=== PATIENT | female | born 1990 | race Caucasian/White ===

== ENCOUNTER 2020-12-03 08:36 | Emergency (ER) | payer BC, SELFPAY ==
[2020-12-03 08:50] VITALS: BP 123/65; PULSE 89; RESP 16; TEMP 36.3; O2SAT 100
--- NOTE | 2020-12-03 08:57 | ED.GENADULT ---
HPI - General Adult General Chief complaint: Urogenital-Female Stated complaint: Poss Uti Time Seen by Provider: 12/03/20 08:53 Source: patient and RN notes reviewed Mode of arrival: ambulatory Limitations: no limitations History of Present Illness HPI narrative: 30-year-old female presents with urinary complaints for the past 7 days. Luciana reports increasing symptoms daily. Dysuria consist of low back pain, hematuria, burning, frequency, and urgency.? D-Mannose natural supplement without relief.? Denies fever or chills. No significant pelvic pain. No vaginal discharge.? No concerns for STDs. Exacerbating factors urinating.? Denies vaginal bleeding. LMP 11/08/2020.? Denies nausea, vomiting, and abdominal pain.? Tolerating liquids well. Remains active. The patient reports she have not been diagnosed with COVID-19. The patient reports she is not waiting for the results of a COVID-19 lab test. The patient reports she do not have sweats, weakness, or fatigue. The patient reports she do not have a new or worsening cough or shortness of breath. Denies chest pain. The patient reports she do not have any rhinorrhea, congestion, sore throat, loss of taste or smell, and diarrhea. Denies recent traveling. Denies concerns for COVID-19 or exposures been home with limited outdoor exposure except for essential household needs and return home. At this time, patient is not suspected of having COVID-19. Some parts of this dictation were generated by voice recognition software and may contain typographical and/or grammatical inaccuracies. Related Data Home Medications Medication Instructions Recorded Confirmed No Home Medications 12/03/20 12/03/20 Allergies Allergy/AdvReac Type Severity Reaction Status Date / Time No Known Allergies Allergy Verified 12/03/20 08:45 Review of Systems Review of Systems: Narrative: CONSTITUTIONAL: Denies fever, chills, sweats. EYES: Denies visual changes, redness, discharge. ENT: Denies rhinorrhea, congestion, sore throat, otalgia. CARDIOVASCULAR: Denies chest pain, palpitations, edema. RESPIRATORY: Denies dyspnea, wheezing, cough. GASTROINTESTINAL: Denies abdominal pain, nausea, vomiting, diarrhea. GENITOURINARY: Complains of hematuria, dysuria (burning, frequency, and urgency). Denies abnormal discharge. SKIN: Denies rash or itching. MUSCULOSKELETAL: Complains of lower back pain. Denies joint pain or myalgia. NEUROLOGIC: Denies numbness or focal weakness. PSYCHIATRIC: Denies anxiety or depression. All systems reviewed & are unremarkable except as noted in HPI and below. PENDING SALE TO [facility] Past Medical History Medical History (Updated 12/04/20 @ 00:00 by Michelet Oliver) delivery delivered X1 Vaginal delivery X1 Surgical History Surgical History (Updated 12/03/20 @ 09:16 by WALT Alvarado) H/O section Family History Family History (Updated 12/03/20 @ 09:17 by WALT Alvarado) Father Hematuria Mother Alive and well Social History Social History (Updated 12/03/20 @ 09:18 by WALT Alvarado) Smoking status: Never smoker Alcohol intake: current Substance use: never Living arrangements: with family Occupation/Education: unemployed Gender identity (if verbalized by the patient): Female Sexual Orientation (if Verbalized by the Patient): Straight or Heterosexual Comments At time of signature, agree with nurse past medical, surgical, social, and family history.? There is no relevant family history pertinent to the presenting complaint. Exam Narrative: Exam Narrative: GENERAL: This is a well-nourished, well-developed patient, in no apparent distress.? Talks in full sentences and ambulates with steady gait without dyspnea. HEAD: Normocephalic, atraumatic. EYES: PERRL. Sclera clear/white. Vision is grossly intact. CARDIOVASCULAR: Regular rate and rhythm without murmurs, gallops, or rubs. RESPIRATORY: Clear to auscultation. Mariam
== END 2020-12-03 09:12 | disposition home or self-care (01) ==
PROVIDERS: Emergency Provider Nurse Practitioner Family
DX: R30.0 Dysuria (principal)
CPT/HCPCS: 81003; 87077; 87086; 87088; 87186; 99213; G0463

== ENCOUNTER 2021-02-26 18:58 | Emergency (ER) | payer BC, SELFPAY ==
[2021-02-26 19:03] VITALS: BP 154/94; PULSE 85; RESP 20; TEMP 36.9; O2SAT 100
--- NOTE | 2021-02-26 19:23 | ED.FEMALEGU ---
HPI - Female Genitourinary General Chief complaint: Urogenital-Female Stated complaint: Possible UTI Time Seen by Provider: 02/26/21 19:23 Source: patient, RN notes reviewed and old records reviewed Mode of arrival: ambulatory Limitations: no limitations History of Present Illness HPI Narrative: 30 year old female who presents to [facility] care with complaints of urine frequency, urgency ,hematuria, right flank pain radiates to pelvis with supra pubic pressure since 1100 today. Patient states that she has taken Ibuprofen and Tylenol for her discomfort with minimal decrease in her discomfort. Patient states history of frequent urinary tract infections.Patient denies any vaginal discharge or any perineal itching, denies any nausea or vomiting or any known fevers. MD elicited complaint: UTI and flank pain (right flank) Pertinent past history: recurrent UTIs Location of symptoms: suprapubic and flank Severity: moderate Female Urogenital Radiation: Suprapubic and R Flank Severity scale (1-10): 4 Associated symptoms: abdominal pain (suprapubic) and back pain (right flank) Related Data Home Medications Medication Instructions Recorded Confirmed No Home Medications 12/03/20 02/26/21 Allergies Allergy/AdvReac Type Severity Reaction Status Date / Time No Known Allergies Allergy Verified 02/26/21 19:22 Review of Systems Review of Systems: Narrative: CONSTITUTIONAL: Denies fever, chills, or sweats. EYES: Denies visual changes, redness, or discharge. ENT: Denies rhinorrhea, congestion, sore throat, or otalgia. CARDIOVASCULAR: Denies chest pain, palpitations, or edema. RESPIRATORY: Denies cough or dyspnea. GASTROINTESTINAL: Positive for suprapubic abdominal pain,no nausea, vomiting, or diarrhea. GENITOURINARY:Positive for dysuria or hematuria. SKIN: Denies rash or itching. MUSCULOSKELETAL: Positive for right flank pain in her back,no joint pain, or myalgia. NEUROLOGIC: Denies headache, numbness, or weakness. PSYCHIATRIC: Denies anxiety or depression. All systems reviewed & are unremarkable except as noted in HPI and below PMFSH Past Medical History Medical History delivery delivered X1 Vaginal delivery X1 Surgical History Surgical History H/O section Family History Family History Father Hematuria Mother Alive and well Social History Social History Smoking status: Never smoker Alcohol intake: current Substance use: never Gender identity (if verbalized by the patient): Female Comments At time of signature, agree with nursing past medical, surgical, social and family history. There is no relevant family history pertinent to the presenting complaint Exam Narrative: Exam Narrative: GENERAL: Well-appearing, well-nourished, and in no acute distress. HEAD: Normocephalic, atraumatic. EYES: PERRLA and EOMI. ENT: Nares clear, no rhinorrhea or epistaxis. Mucous membranes moist.TM's normal with good light reflex, throat pin with no lesions, exudates or tonsil enlargement. NECK: Supple.no lymphadenopathy CHEST: Clear to auscultation. No respiratory distress.SAO2 100% on room air HEART: Regular rate and rhythm. No murmur heard. Normal peripheral pulses. ABDOMEN: Soft,tender suprapubic area, nondistended, normal active bowel sounds.Negative McBurney point tenderness EXTREMITIES: Normal range of motion. No edema. Right flank pain upon examination. SKIN: Warm, dry, no rash. NEURO: No focal deficits. Alert and oriented x3. Course Vital Signs Vital signs: Vital Signs Temperature 36.9 C 02/26/21 19:03 Pulse Rate 85 02/26/21 19:03 Respiratory Rate 20 02/26/21 19:03 Blood Pressure 154/94 H 02/26/21 19:03 Pulse Oximetry 100 02/26/21 19:03 Temperature 36.9 C 02/26
== END 2021-02-26 20:04 | disposition home or self-care (01) ==
PROVIDERS: Emergency Provider Registered Nurse
DX: N39.0 Urinary tract infection, site not specified (principal); R31.9 Hematuria, unspecified
CPT/HCPCS: 81003; 87086; 99213; G0463

== ENCOUNTER 2022-07-09 05:00 | Inpatient (IN) | payer OTHER, SELFPAY ==
[2022-07-09] VITALS (98 sets, daily range): BP systolic 87–166; BP diastolic 57–100; PULSE 83–162; RESP 16; TEMP 36.3–37.1; O2SAT 87–100; BMI 35.9
--- NOTE | 2022-07-09 05:21 | LDADM ---
This patient, Luciana Arce, was admitted to Labor/Delivery/Recovery 102 on 07/09/22 at 05:00. Plans for labor, pain management and were discussed with patient. Patient/family oriented to hospital policies and general routines including ID bracelet, bed and alarms, visiting hours, pain management, procedures, bathroom and other care routines, personal items, smoking policy, room service/diet and guest tray routines, security routines, and visiting hours. Patient/Family are encouraged to report perceived risks to care and to ask questions if they do not understand what they are told or what they should do. See OBIX for further documentation.
[2022-07-09 05:30] LABS: Basophils Percent Auto 0.2 % (0.2-1.2); Eosinophils Absolute Auto 0.1 K/mm3 (0-0.3); Eosinophils Percent Auto 0.8 % (0-4.4); Hematocrit 33.2 % (37.0-47.0); Hemoglobin 10.5 g/dL (12.0-15.0); Immature Granulocyte Absolute 0.02 K/mm3 (0.00-0.031); Immature Granulocyte Percent A 0.3 % (0-0.5); Lymphocytes Absolute Auto 1.41 K/mm3 (0.9-3.2); Lymphocytes Percent Auto 23.1 % (18.3-44.2); Mean Corpuscular HGB Conc 31.6 g/dl (32-36); Mean Corpuscular Hemoglobin 25.3 pg (26-34); Mean Platelet Volume 11.7 fl (7.4-10.4); Monocytes Absolute Auto 0.5 K/mm3 (0.1-0.6); Monocytes Percent Auto 8.9 % (2.6-8.5); Neutrophils Absolute Auto 4.1 K/mm3 (1.3-6.7); Neutrophils Percent Auto 66.7 % (45.5-73.1); Platelet Count Result 309 k/mm3 (150-375); Red Blood Count 4.15 M/mm3 (4.2-5.4); Red Cell Distribution Width 14.5 % (11.5-14.5); White Blood Count 6.1 K/mm3 (4.5-10.0)
--- NOTE | 2022-07-09 06:09 | WPDANESEPP ---
Anes - Eval Pre Procedure Procedure: labor epidural Date/Time: 07/09/22 06:09 Pre Op Diagnosis: IOL Patient Data Age: 32 Gender: F Height: 1.7 m Weight: 104 kg Last Vital Signs Pulse 98 07/09/22 06:00 BP 124/85 07/09/22 06:00 O2 Del Method Room Air 07/09/22 05:20 Allergies Allergy/AdvReac Type Severity Reaction Status Date / Time No Known Allergies Allergy Verified 06/24/22 12:30 Home Medications Medication Instructions Recorded Confirmed Type No Home Medications 12/03/20 02/26/21 History cephalexin 500 mg tablet 500 mg PO Q8H #30 tabs 02/26/21 Rx Laboratory Tests 07/09/22 07/09/22 07/09/22 05:10 05:10 05:10 WBC 6.1 K/mm3 K/mm3 (4.5-10.0) RBC 4.15 M/mm3 L M/mm3 (4.2-5.4) Hgb 10.5 g/dL L g/dL (12.0-15.0) Hct 33.2 % L % (37.0-47.0) MCV 80.0 fl fl (80-100) MCH 25.3 pg L pg (26-34) MCHC 31.6 g/dl L g/dl (32-36) RDW 14.5 % % (11.5-14.5) Plt Count 309 k/mm3 k/mm3 (150-375) MPV 11.7 fl H fl (7.4-10.4) Immature Gran % (Auto) 0.3 % % (0-0.5) Neut % (Auto) 66.7 % % (45.5-73.1) Lymph % (Auto) 23.1 % % (18.3-44.2) [place] % (Auto) 8.9 % H % (2.6-8.5) Eos % (Auto) 0.8 % % (0-4.4) Baso % (Auto) 0.2 % % (0.2-1.2) Lymph # (Auto) 1.41 K/mm3 K/mm3 (0.9-3.2) [place] # (Auto) 0.5 K/mm3 K/mm3 (0.1-0.6) Eos # (Auto) 0.1 K/mm3 K/mm3 (0-0.3) Baso # (Auto) 0.0 K/mm3 K/mm3 (0.0-0.1) Abs Immat Gran (auto) 0.02 K/mm3 K/mm3 (0.00-0.031) Absolute Neuts (auto) 4.1 K/mm3 K/mm3 (1.3-6.7) Absolute Nucleated RBC 0.0 K/mm3 K/mm3 (0.0-0.012) Nucleated RBC % 0.0 % % (0.0-0.2) RPR Pending Crossmatch See Detail Patient hx anesthesia problems: none Family hx anesthesia problems: none Results Review: All pre-operative results and documents have been reviewed as part of the pre-operative evaluation. [facility] Past Medical History Medical History delivery delivered X1 Vaginal delivery X1 Surgical History Surgical History H/O section Family History Family History Father Hematuria Mother Alive and well Grandparent Cerebrovascular accident Social History Social History Smoking status: Never smoker Alcohol intake: current Substance use: never Lack of Transportation: No Lack of Food: Never True Current Housing: I Have Housing Concerned About Future Housing: No Difficulty Paying Gas/Electric Bills: No Difficulty Paying for Meds: No Currently Unemployed: No Education: Bachelor's Degree Difficulty w/ Childcare or Family Care: No Gender identity (if verbalized by the patient): Female Sexual Orientation (if Verbalized by the Patient): Straight or Heterosexual Spiritual care concerns: No Exam Day of Procedure 07/09/22 06:09 Patient weight: obese Heart: regular rate and rhythm Lungs: normal air movement Airway: Mallampati scale Neurological: alert and oriented
--- NOTE | 2022-07-09 06:58 | WPDOBADMIT ---
Obstetrics - Admit Note Admission Note: record reviewed. No pertinent additions to the history and/or any subsequent changes in the physical findings that are not consistent with the expected course of the were found. PT admitted for IOL, SVE 2-3/60/-2 AROM small fluid, bloody show, HX vaginal X1, section for previa and plans TOLAC today. Consent signed and risks of TOLAC have been reviewed with pt by MD during her care Additions to the history and/or subsequent changes in the physical findings follow. None.
[2022-07-09] MEDS: LACTATED RINGERS 1,000 ML 125 ML IV CONT ×2 (10:45→13:52)
[2022-07-09] MEDS: OXYTOCIN 30 UNITS/NS 500 ML 30 UNITS/500 ML BAG IV CONT (10:45)
[2022-07-09 14:47] LABS: Rapid Plasma Reagin Non-Reactive (NonReactive)
--- NOTE | 2022-07-09 18:39 | P.PCNOB_ITS ---
OB - Delivery Note Procedure Delivery date: 07/09/22 Procedure: TOLAC, Events: Other (TOLAC) Induction method: Per Pitocin Protocol Delivery augmentation: Rupture of Membranes Delivery monitor: External FHT and Internal Uterine Route of delivery: Laceration Description: Perineal - 2nd Degree (superficial skin down to rectum, no rectal capsule involvement) Delivery repair: vicryl Specimen: No Quantitative Blood Loss (ml): 120 Anesthesia type: Epidural Disposition: Floor Narrative: mom and baby stable and doing skin to skin [place] Baby Date of : 07/09/22 Time of : 18:19 Weeks of gestation at delivery: 39 gender: Female Weight (pounds): 7 Weight (ounces): 13 presentation: vertex position: Right Occiput Anterior (compound presentation, posterior arm) Placenta delivery description: Spontaneous Cord Vessel Description: 3 Vessels, Clamped/Cut and Delayed Cord Clamping score one minute: 7 score five minutes: 9
[2022-07-09] MEDS: WITCH HAZEL 40 PADS 1 PAD TOPICAL (19:56)
[2022-07-09] MEDS: KETOROLAC 30 MG/ML VIAL (*BKC) IV PUSH (19:56)
[2022-07-09] MEDS: BENZOCAINE 20% AER SPR (*SP) 56 GM CAN 1 SPRAY TOPICAL (19:56)
[2022-07-10] MEDS: ACETAMINOPHEN 325 MG TABLET 650 MG PO ×3 (00:15→15:46)
[2022-07-10] MEDS: KETOROLAC 30 MG/ML VIAL (*BKC) IV PUSH (03:45)
[2022-07-10 05:57] LABS: Hemoglobin 8.8 g/dL (12.0-15.0)
--- NOTE | 2022-07-10 07:15 | PM.OBPNVD ---
OB - PN: Subj Subjective Date/time seen: 07/10/22 07:15 S/p day 1 OB - PN: Obj Data Labs CBC & Chem 7: 07/10/22 04:07 Labs: Laboratory Results - last 24 hr 07/09/22 07/10/22 05:10 04:07 Hgb 8.8 L Hct 28.0 L RPR Non-reactive OB - PN A/P Plan day: 1 Plan: routine care and discharge home Time Spent With Patient Time: Total time spent is greater than 50% in coordination of care (as documented) at patient's floor/unit and/or counseling patient: Review of Systems Review of Systems: All systems reviewed & are unremarkable except as noted in HPI and below Exam Const: General: cooperative, healthy appearing and comfortable
--- NOTE | 2022-07-10 07:19 | PM.OBDSVD ---
DS: Admitting Diagnosis Discharge Date 07/10/2022 Admitting Diagnosis IOL, TOLAC OB - DS: Summary OB Procedures : None OB Procedures Intrapartum: Spontaneous Vag Delivery OB Procedures: : None Time Spent with Patient Time attestation: Total time spent providing and/or coordinating discharge services: DS: Data Data Completed and Pending Labs on day of discharge: Labs from last 24 hours 07/10/22 07/09/22 04:07 05:10 Hgb 8.8 L Hct 28.0 L RPR Non-reactive Discharge Plan Discharge Attending physician on discharge: Kaylah Huff Discharging Clinician: Huong Denise Patient Disposition: Home, Self-Care Activity: pelvic rest Diet: regular Patient Instructions: Antibiotic Form Stand Alone Forms: General Discharge Information Follow-up/Referrals: Huong Denise CNM [Primary Care Provider] - 4 Weeks Discharge Medications: Discontinued cephalexin 500 mg tablet 500 mg PO Q8H Qty: 30 0RF No Action No Home Medications Date of admission: 07/09/22 05:00 Primary Care Provider: Huong Denise Admitting Provider: Kaylah Huff Attending physician on admission: Kaylah Huff Condition: Stable
[2022-07-10 08:25] VITALS: BP 127/71; PULSE 99; RESP 18; TEMP 37.3; O2SAT 100
--- NOTE | 2022-07-10 09:00 | PC.NURSE ---
Contacted by patient's primary RN this morning to answer some questions patient had about an ache in her left breast being mastitis. Patient denied pain with feeding infant or sharp pains. Answered questions and assessed both breasts. No signs of redness, warmth or pain on palpation of either breast. Patient is feeling well. Patient reports feeling some fullness in both breasts. Educated patient on signs to look for that would indicate mastitis. Patient states she had mastitis with a previous child.
--- NOTE | 2022-07-10 10:30 | WPDANLDPN2 ---
Anes-Prog Note L&D Date/Time: 07/10/22 10:30 Comfortable throughout: labor and delivery Neuraxial method: epidural Epidural/Spinal procedure site: clean & non-tender Neuro status: Neuro function grossly intact. Cardiovascular status: normal Respiratory status: normal Airway patency: baseline Mental status: baseline Post-Op hydration status: normal Vital Signs: Last Vital Signs Temp 37.3 C 07/10/22 08:25 Pulse 99 07/10/22 08:25 Resp 18 07/10/22 08:25 BP 127/71 07/10/22 08:25 Pulse Ox 100 07/10/22 08:25 O2 Del Method Room Air 07/09/22 05:20 Pain score (VAS): 08/27 I/O: Intake & Output 07/09/22 07/10/22 07/10/22 23:59 07:59 15:59 Output Total 120 Balance -120 Post-procedural complaints: none Patient feedback: Patient satisfied with anesthetic care.
--- NOTE | 2022-07-10 11:04 | PC.NURSE ---
Consulted with patient at 1050 to assess needs related to . Mother led conversation with her experience with feeding baby so far. Mother has previous experience. Mother works well with her with encouragement. Reviewed working with , breast, nipples and how to protect the nipples with an optimal deep latch, good positioning, and good hand washing. Encouraged understanding the benefits of skin to skin, responding to feeding cues, frequencies of feeding 8-12 times in 24 hours (approximately 2-3 hours), duration of feedings, milk production, intake/output feeding sheet and signs of adequate intake encouraging swallowing at the breast. Reviewed positioning and alignment, supporting breast, off-centered (asymmetrical latch) and leading with the chin with big open wide gape. latched well to both breasts in cross cradle position but would come off and on the breast. sleepy at the breast, mother showed ways to get to stay awake and feed at the breast. Education given to mother of how to visualize suck/swallow ratios and drinking at the breast. Infant was able to maintain latch with minimal discomfort to mother. Nipple care reviewed with optimal latch and good positioning. Mother voiced understanding of the education shared, calling for assistance if the does not latch or if there is discomfort with . Reported to the primary RN. Breast pump provided due to maternal request. Mother states that her previous child had jaundice and she would like to make sure she is getting good breast stimulation. Instructions given on flange size, cleaning, care, usage, that there should be no pain, pumping schedule for milk production, collection, and storage of human milk. Patient instructed to call out to have pump flange sizing assessed. Mother voiced understanding of the education shared. Reported to the primary RN.
[2022-07-10 12:05] VITALS: BP 121/72; PULSE 103; RESP 18; TEMP 37.5; O2SAT 100
--- NOTE | 2022-07-10 12:47 | PC.NURSE ---
Called to the room to assess feeding. Infant feeding often for short periods of time. able to latch well onto breast. Infant will suck for short periods of time and then fall back to sleep. Mother is positioning independently and knows how to assess for good latch and swallowing. Mother reports infant had a very large stool and wet diaper after last feeding session. Nipple care reviewed. Nipples infact with no signs of abrasions. pages flagged on mom and baby guide. Mother voiced understanding of the education shared, calling for assistance if the infant does not latch or if there is discomfort with . Mother chooses to pump after feeding to help stimulate milk supply, encouraged to call out for assistance if able to collect milk. Mom shown how to work pump and denies any questions. Reported to the primary RN.
[2022-07-10 17:10] VITALS: BP 135/80; PULSE 98; RESP 16; TEMP 36.5
[2022-07-12 12:37] VITALS: BP 125/75; PULSE 91; RESP 20; TEMP 37.5; O2SAT 99
== END 2022-07-10 20:00 | disposition home or self-care (01) | DRG 560 ==
LOC: ANHLDR 05:02 → ANHOB2 22:03
PROVIDERS: Admitting Provider Obstetrics & Gynecology; PCP Advanced Practice Midwife; Visit Provider Obstetrics & Gynecology
DX: O34.219 Maternal care for unspecified type scar from previous cesarean delivery (principal); O32.6XX0 Maternal care for compound presentation, not applicable or unspecified; O70.1 Second degree perineal laceration during delivery; Z3A.39 39 weeks gestation of pregnancy; Z37.0 Single live birth
CPT/HCPCS: 36415; 85014; 85018; 85025; 86592; 86850; 86900; 86901; A9270; J1885; J2590; J2795; J7120

== ENCOUNTER 2022-07-19 11:56 | Outpatient (CLI) | payer OTHER, SELFPAY ==
[2022-07-19 12:09] VITALS: BP 128/79; PULSE 97
[2022-07-19 12:15] VITALS: BP 110/64; PULSE 83
[2022-07-19 12:30] VITALS: BP 119/74; PULSE 87
[2022-07-19 12:49] LABS: Appearance Urine Clear (Clear); Basophils Percent Auto 0.4 % (0.2-1.2); Bilirubin Urine 1+ (Negative); Blood Urine 3+ (Negative); Color Urine Yellow (Yellow); Eosinophils Percent Auto 0.9 % (0-4.4); Glucose Urine UA Negative (Negative); Hematocrit 35.1 % (37.0-47.0); Hemoglobin 10.9 g/dL (12.0-15.0); Immature Granulocyte Absolute 0.02 K/mm3 (0.00-0.031); Immature Granulocyte Percent A 0.4 % (0-0.5); Ketones Urine Trace mg/dL (Negative); Leukocyte Esterase Ur 1+ LEU/UL (NEGATIVE); Lymphocytes Absolute Auto 0.67 K/mm3 (0.9-3.2); Lymphocytes Percent Auto 14.4 % (18.3-44.2); Mean Corpuscular HGB Conc 31.1 g/dl (32-36); Mean Corpuscular Hemoglobin 25.4 pg (26-34); Mean Corpuscular Volume 81.8 fl (80-100); Mean Platelet Volume 10.6 fl (7.4-10.4); Monocytes Absolute Auto 0.4 K/mm3 (0.1-0.6); Monocytes Percent Auto 8.8 % (2.6-8.5); Neutrophils Absolute Auto 3.5 K/mm3 (1.3-6.7); Neutrophils Percent Auto 75.1 % (45.5-73.1); Nitrate Urine Negative (Negative); Platelet Count Result 357 k/mm3 (150-375); Protein Urine 2+ mg/dL (Negative); Red Blood Count 4.29 M/mm3 (4.2-5.4); Red Cell Distribution Width 15.6 % (11.5-14.5); White Blood Count 4.6 K/mm3 (4.5-10.0)
[2022-07-19 12:52] LABS: Bacteria Urine Trace /hpf; Mucus Urine Rare /lpf; RBC Urine 21-50 /hpf (0-2); Squamous Epithelial Cell Urine Few /hpf (Few)
[2022-07-19 12:53] LABS: Add Urine Microscopic? YES
[2022-07-19 13:00] LABS: Alanine Aminotransferase 23 U/L (6-35); Alkaline Phosphatase 136 U/L (38-126); Anion Gap 8 mmol/L (8-16); Aspartate Amino Transferase 26 U/L (14-36); Bilirubin,Total 0.7 mg/dL (0.2-1.3); Blood Urea Nitrogen 12 mg/dL (7-17); Calcium 8.3 mg/dL (8.4-10.2); Carbon Dioxide 25 mmol/L (22-30); Chloride 104 mmol/L (98-107); Estimated Glomerular Filt Rate > 60; Glucose 89 mg/dL (65-110); Potassium 3.8 mmol/L (3.4-5.0); Sodium 137 mmol/L (137-145); Uric Acid 6.7 mg/dL (2.5-7.5)
[2022-07-19 13:07] LABS: Creatinine Urine 275.2 mg/dL; Total Protein Urine Random 23 mg/dL; Ur Ttl Prot Creatinine Ratio 0.08 mg/mg (0-0.20)
[2022-07-19 13:25] LABS: Influenza A QL RT-PCR Negative (Negative); Influenza B QL RT-PCR Negative (Negative); RSV RNA, RT-PCR Negative (Negative); SARS-CoV-2 RNA PCR Negative
== END 2022-07-19 13:10 | disposition home or self-care (01) ==
LOC: ANHOBOP 12:04 → ANHOBPP 12:07
PROVIDERS: Visit Provider Advanced Practice Midwife
DX: O16.5 Unspecified maternal hypertension, complicating the puerperium (principal); Z3A.00 Weeks of gestation of pregnancy not specified
CPT/HCPCS: 36415; 80053; 81001; 82570; 84156; 84550; 85025; 87086; 87637; 99199

== ENCOUNTER 2022-12-20 08:02 | Emergency (ER) | payer OTHER, SELFPAY ==
[2022-12-20 08:09] VITALS: BP 129/85; PULSE 100; RESP 16; TEMP 36.6; O2SAT 100
--- NOTE | 2022-12-20 08:09 | ED.URI ---
HPI - URI/Sore Throat General Chief Complaint: Upper Respiratory Infection Stated Complaint: Sore Throat Time Seen by Provider: 12/20/22 08:10 Source: patient and RN notes reviewed History of Present Illness HPI Narrative: Patient is a 32-year-old female who presents to the Urgent Care with complaints of a sore throat and intermittent headaches. Patient states that ?her lymph nodes hurt?. States that she feels fatigued. Patient is currently breast feeding and has 2 other children at home. States she has been taking Advil for the headaches. Patient is concerned for strep throat/mono. States that she has had mono twice in the past. Denies any fevers, nausea or vomiting. No other acute complaints. No acute distress noted. Patient aware of the plan of care. Some parts of this dictation were generated by voice recognition software and may contain typographical and/or grammatical inaccuracies. Related Data Allergies Allergy/AdvReac Type Severity Reaction Status Date / Time No Known Allergies Allergy Verified 06/24/22 12:30 Review of Systems Review of Systems: CONSTITUTIONAL: Denies fever, chills, or sweats. Reports of fatigue EYES: Denies visual changes, redness, or discharge. ENT: Reports of sore throat CARDIOVASCULAR: Denies chest pain, palpitations, or edema. RESPIRATORY: Denies cough or dyspnea. GASTROINTESTINAL: Denies abdominal pain, nausea, vomiting, or diarrhea. GENITOURINARY: Denies dysuria or hematuria. SKIN: Denies rash or itching. MUSCULOSKELETAL: Denies back pain, joint pain, or myalgia. NEUROLOGIC: Reports of intermittent headaches All other systems reviewed are negative, except as documented in HPI. [facility] Past Medical History Medical History delivery delivered X1 Vaginal delivery X1 Surgical History Surgical History H/O section Family History Family History Father Hematuria Mother Alive and well Grandparent Cerebrovascular accident Social History Social History Smoking status: Never smoker Alcohol intake: current Substance use: never Lack of Transportation: No Lack of Food: Never True Current Housing: I Have Housing Concerned About Future Housing: No Difficulty Paying Gas/Electric Bills: No Difficulty Paying for Meds: No Currently Unemployed: No Education: Bachelor's Degree Difficulty w/ Childcare or Family Care: No Living arrangements: with family Occupation/Education: unemployed Gender identity (if verbalized by the patient): Female Sexual Orientation (if Verbalized by the Patient): Straight or Heterosexual Spiritual care concerns: No Comments At the time of my signature, I reviewed and agree with the nursing past medical, surgical, social, and family history. There is no relevant family history pertinent to the patient complaint. Exam Narrative: GENERAL: This is a well-nourished, well-developed patient, in no apparent distress. HEAD: normocephalic, atraumatic. EYES: PERRL. Sclera clear/white. Vision is grossly intact. EARS: External ears normal, auditory canals clear and without drainage, TMs normal without perforation. Hearing grossly intact. NOSE: External nose normal with no obvious nasal discharge, nares without redness, no rhinorrhea. THROAT: Mucous membranes moist, posterior pharynx clear. NECK: Neck supple, non-tender without lymphadenopathy, masses or thyromegaly. CARDIOVASCULAR: Regular rate and rhythm without murmurs, gallops, or rubs. RESPIRATORY: Clear to auscultation. Breath sounds equal bilaterally. No wheezes, rales, or rhonchi. SKIN: warm, intact with no suspicious lesions or rash, good texture and turgor. NEURO: awake, alert, and oriented to person, place and time. There were no
== END 2022-12-20 08:54 | disposition home or self-care (01) ==
PROVIDERS: Emergency Provider Nurse Practitioner Family
DX: J02.9 Acute pharyngitis, unspecified (principal)
CPT/HCPCS: 87081; 87880; 99213; G0463

== ENCOUNTER 2023-12-04 11:20 | Outpatient (RCR) | payer MEDICAID, SELFPAY | END 2023-12-12 14:06 | disposition home or self-care (01) | LOC: ANHLAB 11:20 | PROVIDERS: Visit Provider Advanced Practice Midwife | DX: O20.0 Threatened abortion (principal); Z3A.00 Weeks of gestation of pregnancy not specified | CPT/HCPCS: 36415; 84702 ==

== ENCOUNTER 2023-12-26 12:04 | Outpatient (RCR) | payer MEDICAID, SELFPAY ==
[2023-12-19 12:55] LABS: Beta HCG Quantitative 21.34 mIU/ML
[2023-12-26 12:52] LABS: Beta HCG Quantitative < 2.39 mIU/ML
== END 2024-03-11 23:59 | disposition home or self-care (01) ==
LOC: ANHLAB 12:04
PROVIDERS: Visit Provider Advanced Practice Midwife
DX: O03.9 Complete or unspecified spontaneous abortion without complication (principal)
CPT/HCPCS: 36415; 84702

== ENCOUNTER 2024-10-27 12:04 | Inpatient (IN) | payer OTHER, SELFPAY ==
[2024-10-27] VITALS (78 sets, daily range): BP systolic 83–133; BP diastolic 46–90; PULSE 81–128; RESP 16–18; TEMP 36.4–37.2; O2SAT 97–100; BMI 38.1
[2024-10-27 12:46] LABS: Basophils Percent Auto 0.3 % (0.2-1.2); Eosinophils Percent Auto 0.3 % (0-4.4); Hematocrit 33.4 % (37.0-47.0); Hemoglobin 11.1 g/dL (12.0-15.0); Immature Granulocyte Absolute 0.02 K/mm3 (0.00-0.031); Immature Granulocyte Percent A 0.3 % (0-0.5); Lymphocytes Absolute Auto 0.82 K/mm3 (0.9-3.2); Lymphocytes Percent Auto 12.9 % (18.3-44.2); Mean Corpuscular HGB Conc 33.2 g/dl (32-36); Mean Corpuscular Hemoglobin 28.2 pg (26-34); Mean Corpuscular Volume 84.8 fl (80-100); Mean Platelet Volume 11.3 fl (7.4-10.4); Monocytes Absolute Auto 0.4 K/mm3 (0.1-0.6); Monocytes Percent Auto 5.8 % (2.6-8.5); Neutrophils Absolute Auto 5.1 K/mm3 (1.3-6.7); Neutrophils Percent Auto 80.4 % (45.5-73.1); Platelet Count Result 249 k/mm3 (150-375); Red Blood Count 3.94 M/mm3 (4.2-5.4); Red Cell Distribution Width 15.3 % (11.5-14.5); White Blood Count 6.4 K/mm3 (4.5-10.0)
[2024-10-27] MEDS: OXYTOCIN 30 UNITS/NS 500 ML 30 UNITS/500 ML BAG IV CONT (13:19)
[2024-10-27] MEDS: LACTATED RINGERS 1,000 ML 125 ML IV CONT ×2 (13:19→15:35)
[2024-10-27 13:23] LABS: Syphilis IgG/IgM Antibody Negative (Negative)
--- NOTE | 2024-10-27 13:30 | LDADM ---
This patient, Luciana Rouse, was admitted to Labor/Delivery/Recovery 102 on 10/27/24 at 12:04. Plans for labor, pain management and were discussed with patient. Patient/family oriented to hospital policies and general routines including ID bracelet, bed and alarms, visiting hours, pain management, procedures, bathroom and other care routines, personal items, smoking policy, room service/diet and guest tray routines, security routines, and visiting hours. Patient/Family are encouraged to report perceived risks to care and to ask questions if they do not understand what they are told or what they should do. See OBIX for further documentation.
[2024-10-27 13:36] LABS: HIV 1/2 Ab P24 Ag Result Negative (Negative)
--- OUTSIDE RECORDS SUMMARY | 2024-10-27 13:39 | XMS_ITS | Continuity of Care Document ---
Author Name Conner Gonzalez Address [address] [facility] [place] [address] Organization Unknown Address [address] [place], [place] [id number] [place] [address] Medications No known medications Problems No known problems
--- OUTSIDE RECORDS SUMMARY | 2024-10-27 13:39 | XMS_ITS | Referral Summary ---
Author Organization [facility] [employer] Address [address] [place] [address] Care Team Providers Care Paraplanner Name Role Phone Unavailable Primary Care Provider Unavailabl e Source Comments [facility],non-owned Affiliates and Associated Physician Practices is amultiple site organization consisting of ambulatory clinics and hospital sitesin [place], [place], [place] and [place]. This disclosure is being madepursuant to the Care Everywhere program and may not contain all information available regarding this patient. Last updated 18.[facility] Allergies No known active allergies Medications Be aware that medications may not be up to date on this document. Always verify current medications with the patient. No known medications Social History Tobacco Use Types Packs/Day Years Used Date Smoking Tobacco: Never Assessed Sex and Gender Information Value Date Recorded Sex Assigned at Not on file Gender Identity Not on file Sexual Orientation Not on file Plan of Treatment Not on file Administered Medications
--- OUTSIDE RECORDS SUMMARY | 2024-10-27 13:39 | XMS_ITS | Referral Summary ---
Author Organization [facility] [address] Address [address] [place] [address] Phone Care Team Providers Care Hourly Sign Language Interpreter Name Role Phone No, Physician Primary Care Provider [phone] Encounters Date Type Department Care Team Description 09/17/2024 Telephone [facility] Accountable Care Organization [address] [place] [id number] Lupe Bush Successful Phone Call (Scheduling Reina Annual Exam) from Last 3 Months Allergies No known active allergies Medications prenat vit 96-frlw-scwwl-o m3,6 35-5-1.2-400 mg capsule Take by mouth daily. Active ibuprofen (ADVIL,MOTRIN) 600 mg tabletIndicatio ns:Cramps Take 1 tablet (600 mg total) by mouth every 6 (six) hours as needed for pain. 8 Active Additional Information Patient not taking.Reported on 09/23/2019 metoclopramide (REGLAN) 10 mg tablet TK 1 T PO Q 6 H PRN 0 Active nitrofurantoin (MACRODANTIN) 50 mg capsule Take 1 capsule (50 mg total) by mouth nightly 30 capsule 1 Active Active Problems No known active problems Resolved Problems Problem Noted Date Diagnosed Date Resolved Date Poor growth affecting management of mother in third trimester 03/27/2018 05/07/2018 Maternal varicella, non-immune 09/29/2017 05/07/2018 Immunizations Immunization Administration Dates Next Due MMR 03/30/2018 Social History Tobacco Use Types Packs/Day Years Used Date Smoking Tobacco: Never Smokeless Tobacco: Never Tobacco Cessation:Counseling Given: Yes Alcohol Use Standard Drinks/Week Comments No 0 (1 standard drink = 0.6 oz pur e alcohol) Comments Unknown Sex and Gender Information Value Date Recorded Sex Assigned at Not on file Legal Sex 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 [employer] Gender Identity Not on file Sexual Orientation Not on file 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 Not on file Not on file Last Filed Vital Signs Vital Sign Reading Time Taken Comments Blood Pressure 142/78 03/02/2021 4:57 PM CDT Pulse 90 03/02/2021 4:57 PM CDT Temperature 37.1 C (98.7 F) 09/23/2019 12:36 PM OPERATIONS OFFICER [employer] Respiratory Rate 18 09/23/2019 12:36 PM OPERATIONS OFFICER [employer] Oxygen Saturation 99% 09/23/2019 12:36 PM OPERATIONS OFFICER [employer] Inhaled Oxygen Concentration - - Weight 90.7 kg (200 lb) 03/02/2021 4:57 PM CDT Height 170.2 cm (5' 7 ) 03/02/2021 4:57 PM CDT Body Mass Index 31.32 03/02/2021 4:57 PM CDT Plan of Treatment Not on file Insurance [place] [address] IDPA [facility] PLAN [facility] PL[facility] Advance Directives For more information, please contact: [phone] * Full Code (Latest Code Status on File) Date Activated Date Inactivated Comments 03/28/2018 11:16 PM 03/30/2018 7:58 PM * Full Code Date Activated Date Inactivated Comments 03/28/2018 12:57 PM 03/28/2018 11:16 PM Full CPR i n case of cardiopulmonary arrest Care Teams Hourly Sign Language Interpreter Relationship Specialty Start Date End Date No, Physician PCP - General 09/18/17
--- OUTSIDE RECORDS SUMMARY | 2024-10-27 13:39 | XMS_ITS | Clinical Summary ---
Author Organization [facility] [employer] Address [address] [place] [address] Care Team Providers Care Rn Maternity Name Role Phone Unavailable Primary Care Provider Unavailabl e Source Comments [facility] [employer],non-owned Affiliates and Associated Physician Practices is amultiple site organization consisting of ambulatory clinics and hospital sitesin [place], [place], [place] and [place]. This disclosure is being madepursuant to the Care Everywhere program and may not contain all information available regarding this patient. Last updated 18.[employer] Allergies No known active allergies Medications Be [...] Orientation Not on file Plan of Treatment Health Maintenance Due Date Last Done Comments PAP SMEAR 1992 HIV SCREENING 2007 HEPATITIS C SCREENING 04/12/2010 DTAP/TDAP/TD VACCINES (1 - Tdap) 2011 HEPATITIS B VACCINE (1 of 3 - 19+ 3-dose series) 2011 COVID-19 VACCINE ( - 2023-2 5 season) 2024 INFLUENZA VACCINE (#1) 2024 DEPRESSION SCREENING 08/18/2024 ZOSTER VACCINE (1 of 2) 2042 HIB VACCINE Aged Out No longer eligi ble based on patient's age to complete this topic HPV VACCINE Aged Out No longer eligi ble based on patient's age to complete this topic MENINGOCOCCAL (Group B) VACC INE SHARED DECISION-MAKING Aged Out No longer eligibl e based on patient's age to complete this topic MENINGOCOCCAL GROUPS A/C/Y/W VACCINE Aged Out No longer eligible b ased on patient's age to complete this topic PNEUMOCOCCAL VACCINE Aged Out No long er eligible based on patient's age to complete this topic
--- OUTSIDE RECORDS SUMMARY | 2024-10-27 13:39 | XMS_ITS | Patient Health Summary ---
Author Organization [facility] [employer] Address [address] [place] [address] Care Team Providers Care Medical Radiation Dosimetrist Name Role Phone Unavailable Primary Care Provider Unavailabl e Note from [facility] [employer] [facility],non-owned Affiliates and Associated Physician Practices is amultiple site organization consisting of ambulatory clinics and hospital sitesin [place], [place], [place] and [place]. This disclosure is being madepursuant to the Care Everywhere program and may not contain all information available regarding this patient. Last updated 18.[facility] [employer] Allergies No known active allergies Medications Be [...] on file Sexual Orientation Not on file Procedures * SKIN TEST PPD - POINT OF CARE(Performed 05/16/2018) Performed for PPD screening test Results * SKIN TEST PPD - POINT OF CARE (05/16/2018) PPD neg Other MISCELLANEOUS SAMPLE S / Unknown 05/16/2018 [facility] - POINT OF CARE ORDERABLES
--- OUTSIDE RECORDS SUMMARY | 2024-10-27 13:39 | XMS_ITS | Clinical Summary ---
Author Organization [facility] [address] Address [address] [place] [address] Phone Care Team Providers Care Registered Sales Assistant Name Role Phone No, Physician Primary Care Provider [phone] Allergies No known active allergies Medications prenat vit 49-bain-qjjrj-o m3,6 35-5-1.2-400 mg capsule Take by mouth [...] 03/27/2018 05/07/2018 Maternal varicella, non-immune 09/29/2017 05/07/2018 Encounters Date Type Department Care Team Description 09/17/2024 Telephone [facility] Accountable Care Organization [address] [place] [id number] Lupe Bush Successful Phone Call (Scheduling Reina Annual Exam) from Last 3 Months Immunizations Immunization Administration Dates Next Due MMR 03/30/2018 Social History Tobacco Use Types Packs/Day Years Used Date Smoking Tobacco: Never Smokeless Tobacco: Never Tobacco Cessation:Counseling Given: Yes Alcohol Use Standard Drinks/Week Comments No 0 (1 standard drink = 0.6 oz pur e alcohol) Comments Unknown Sex and Gender Information Value Date Recorded Sex Assigned at Not on file Legal Sex Female 3:38 PM LEISURE TRAVEL AGENT Gender Identity Not on file Sexual Orientation Not on file 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 2017 - PROM, pitocin augm entation. 2' midline laceration. Last Filed Vital Signs Vital Sign Reading Time Taken Comments Blood Pressure 142/78 03/02/2021 4:57 PM CDT Pulse 90 03/02/2021 4:57 PM CDT Temperature 37.1 C (98.7 F) 09/23/2019 12:36 PM LEISURE TRAVEL AGENT Respiratory Rate 18 09/23/2019 12:36 PM LEISURE TRAVEL AGENT Oxygen Saturation 99% 09/23/2019 12:36 PM LEISURE TRAVEL AGENT Inhaled Oxygen Concentration - - Weight 90.7 kg (200 lb) 03/02/2021 4:57 PM CDT Height 170.2 cm (5' 7 ) 03/02/2021 4:57 PM CDT Body Mass Index 31.32 03/02/2021 4:57 PM CDT Plan of Treatment Not on file Insurance [facility] IDPA [facility] Advance Directives For more information, please contact: [phone] * Full Code (Latest Code Status on File) Date Activated Date Inactivated Comments 03/28/2018 11:16 PM 03/30/2018 7:58 PM * Full Code Date Activated Date Inactivated Comments 03/28/2018 12:57 PM 03/28/2018 11:16 PM Full CPR i n case of cardiopulmonary arrest Care Teams Registered Sales Assistant Relationship Specialty Start Date End Date No, Physician PCP - General 09/18/17
--- OUTSIDE RECORDS SUMMARY | 2024-10-27 13:39 | XMS_ITS | Continuity of Care Document ---
Author Name Conner Gonzalez Address [address] [place] [address] Organization Unknown Address [address] [place], [place] [id number] [place] [address] Medications No known medications Problems No known problems
--- OUTSIDE RECORDS SUMMARY | 2024-10-27 13:39 | XMS_ITS | Clinical Summary ---
Author Organization [facility] Address [facility] [place] [address] Care Team Providers Care Greige Goods Inspector Name Role Phone Gautam Valenzuela DO Primary Care Provider [phone] Social History Tobacco Use Types Packs/Day Years Used Date Smoking Tobacco: Never Assessed Comments Unknown Sex and Gender Information Value Date Recorded Sex Assigned at Not on file Legal Sex Female 1:57 PM AUTO CLEANER Gender Identity Not on file Sexual Orientation Not on file Plan of Treatment Health Maintenance Due Date Last Done Comments Cervical Cancer Screening Pa p Smear (Age 30 to 64) Every 3 Years 1992 Annual Physical 1995 Hepatitis C 2010 DTaP, Tdap and Td Vaccines ( 1 - Tdap) 2011 Hepatitis B Vaccines (1 of 3 - 19+ 3-dose series) 2011 Cervical Cancer Screening Pa p with HPV Testing (Age 30 to 64) Every 5 Years 2022 Cervical Cancer Screening with HPV 2022 COVID-19 Vaccine ( - 2023-2 5 season) 2024 Influenza Adult (#1) 2024 HPV Vaccines Aged Out No longer eligi ble based on patient's age to complete this topic Meningococcal B Vaccine Aged Out No l onger eligible based on patient's age to complete this topic Meningococcal Vaccine Aged Out No jemal twyla eligible based on patient's age to complete this topic Pneumococcal Vaccine: Pediat rics (0 to 5 Years) and At-Risk Patients (6 to 64 Years) Aged Out No longer eligible b ased on patient's age to complete this topic RSV Immunizations Under 20 Months Aged Out No longer eligible based on patient's age to complete this topic Insurance MEDICAID Care Teams Greige Goods Inspector Relationship Specialty Start Date End Date Gautam Valenzuela DO [address] [place] [address] PCP - General FAMILY PRACTICE 09/10/19
--- OUTSIDE RECORDS SUMMARY | 2024-10-27 13:39 | XMS_ITS | Continuity of Care Document ---
Author Organization [facility] [place] Address [address] [place] [address] Assessment Encounter Date Assessment Date Assessment LastModified by Organization Details LastModified Time 10/27/2024 10/27/2024 Patient is _38__weeks . Discussed plan. Not available 10/27/2024 10:40:02 Plan of Treatment Reminders Order Date Submit Date Provider Last Modified By Organization Details Last Modified Time Details Appointments U/S OB GROWTH 2024 09:00A M ULTRASOUND Not available Not available Not available OB ROUTINE 2024 09:30A M NICOLE EastonM Not available Not available Not available OB ROUTINE 2024 09:15A M Huong Denise CNM Not available Not available Not available Lab None recorde d. Referral None recorde d. Procedures None recorde d. Surgeries None recorde d. Imaging None recorde d. Medication Orders None recorde d. Patient TargetsNo targets recorded. Patient InstructionsNo instructions recorded. Reason for Referral None Reported. Results Created Date Observation Date Name Description Value Unit Range Abnormal Flag Note LastModifiedBy Organization Detail LastModifiedTime 06/16/2006/16/2024 US, obste tric, 2nd or 3rd trime ster No observ ation record ed. [email or web address] [place] [address], [place], [address], 06/16/2024 13:04:20 06/16/20 24 06/16/2024 US, obste tric, follo w-up No observ ation record ed. [email or web address] [address], [place], [address], 06/17/2024 08:04:21 07/21/20 24 07/21/2024 US, obste tric, follo w-up No observ ation [facility] [address], [place], [address], 07/21/2024 14:23:56 07/21/20 24 07/21/2024 US, obste tric, follo w-up No observ ation record ed. [email or web address] [address], [place], [address], 07/22/2024 21:13:30 08/25/19 25 08/25/2024 US, obste tric, follo w-up No observ ation record ed. [email or web address] [place] [address], [place], [address], 08/25/2024 13:08:14 08/25/19 25 08/25/2024 US, obste tric, follo w-up No observ ation record ed. [email or web address] [address], [place], [address], 08/25/2024 15:50:17 09/20/19 25 09/20/2024 non-s tress test No observ ation record ed. [address] [facility] [address], [place], [address], 09/21/2024 12:18:12 09/27/19 25 09/27/2024 US, obste tric, follo w-up No observ ation record ed. [email or web address] [place] [address], [place], [address], 09/27/2024 17:19:24 09/27/19 25 09/27/2024 US, obste tric, follo w-up No observ ation record ed. [email or web address] [address], [place], [address], 09/28/2024 09:57:45 10/28/19 25 10/27/2024 US, obste tric, follo w-up No observ ation record ed. [email or web address] [place] [address], [place], [address], 10/27/2024 12:02:51 10/28/19 25 10/27/2024 US, obste tric, bioph ysica l profi le No observ ation record ed. [email or web address] [place] [address], [place], [address], 10/27/2024 12:03:01 10/28/19 25 10/27/2024 US, doppl er, umbil ical arter y veloc imetr y No observ ation record ed. [email or web address] [place] [address], [place], [address], 10/27/2024 12:03:11 10/28/19 25 10/27/2024 US, obste tric, follo w-up No observ ation record ed. [email or web address] [address], [place], [address], 10/27/2024 10:45:11 Result Notes None recorded. Problems Name Problem SNOMED Code Status Onset Date Resolution Date Notes Provider Name and Address Organization Details Recorded Time Past pregnanc y history of section 787485165 Active for previa, has had one since, 2 total vaginal deliveri es Huong Denise CNM [address], [place], [address], [place] [facility] 4 16:35:31 Past pregnanc y history of gestatio nal hyperten chelo 901293726 Active basa daily Prabha brand, [facility] 4 18:12:09 Past pregnanc y history of section 474058242 Completed for previa, wants TOLAC Rula Salazarer null, [facility] 3 15:53:39 Past pregnanc y history of gestatio nal hyperten chelo 742567193 Completed baseline PIH labs, ASA Rula Salazarer null, [facility] 3 15:53:39 Pregnanc y 07434066 Active 2023 Keerthi Hylton null, [facility] 4 15:45:48 Migraine 44296420 Active 2023 Keerthi Hylton null, [facility] 4 15:49:57 Migraine 93024539 Active 2023 Keerthi Hylton null, [facility] 4 15:49:57 Past pregnanc y history of section 474802059 Active for previa, has had one since, 2 total vaginal deliveri es Huong Denise, [place] [address], [place], [address], [facility] 4 16:35:31 Past pregnanc y history of gestatio nal hyperten chelo 192586647 Active basa daily Prabha Reyna null, [facility] 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 4 08:03:45 Placenta circumva llata 1248688 Active 32wk growth us Prabha Reyna null, [facility] 4 08:03:45 Anemia 655703258 Active HGB 10.8 Low ferritin - Iron infusion order faxed 09/29 schedule dt to start infusion on 10/13 and repeat weekly x4wk Prabha Reyna [facility] 5 14:24:03 Anemia 327541132 Active HGB 10.8 Low ferritin - Iron infusion order faxed 09/29 schedule dt to start infusion on 10/13 and repeat weekly x4wk Prabha Reyna [facility] 5 14:24:03 Problem Notes None recorded. Procedures Surgical History Date Name Laterality Status Provider Name and Address Organization Details Recorded Time 04/18/20 24 tooth extraction completed [facility] 08/25/2024 10:55:16 03/19/20 24 Date of Last Pap Smear completed [facility] 03/19/2024 12:21:26 07/18/20 21 extracorporeal shockwave lithotripsy of calculus of kidney completed [facility] 02/02/2022 16:07:19 12/20/19 20 section completed [facility] 02/02/2022 16:07:03 Imaging Results None recorded. Procedure Notes None recorded. Medical Equipment None Reported. Allergies No known drug allergies Medications Name Sig Start Date Stop Date Status Note LastModified by Organization Details LastModified Time cyclobenzap rine 10 mg tablet TAKE 1 TABLET BY MOUTH THREE TIMES DAILY 08/25 completed Not Available Not Available Not Available nitrofurant oin macrocrysta l 50 mg capsule 12/26 completed Not Available Not Available Not Available hydrocodone 5 mg-acetamin ophen 325 mg tablet TAKE 1 TABLET BY MOUTH EVERY 6 HOURS NEEDED FOR MODERATE OR MORE SEVERE PAIN 12/26 completed Not Available Not Available Not Available sumatriptan 25 mg tablet 1 tablet every 8 10 hours prn migraine active Not Available Not Available No t Available ketorolac 10 mg tablet TAKE 1 TABLET BY MOUTH EVERY 6 HOURS NEEDED FOR BREAKTHRO UGH PAIN 12/26 completed Not Available Not Available Not Available amoxicillin 875 mg tablet TAKE 1 TABLET BY MOUTH TWICE DAILY 05/05 completed Not Available Not Available Not Available tamsulosin 0.4 mg capsule TAKE ONE CAPSULE BY MOUTH ONLY DAILY 12/26 completed Not Available Not Available Not Available cephalexin 500 mg tablet TAKE 1 TABLET BY MOUTH EVERY 8 HOURS 12/26 completed Not Available Not Available Not Available ondansetron 4 mg disintegrat ing tablet DISSOLVE ONE TABLET BY MOUTH EVERY 8 HOURS NEEDED FOR NAUSEA 12/26 completed Not Available Not Available Not Available active Not Available Not Avai lable Not Available butalbital- acetaminoph en-caffeine 50 mg-300 mg-40 mg capsule TAKE ONE CAPSULE BY MOUTH EVERY 4 HOURS 03/19 completed Not Available Not Available Not Available ID NOW COVID-19 Test Kit TEST DIRECTED TODAY 02/25 completed Not Available Not Available Not Available Vitals Date Recorded Body weight Body mass index (BMI) Body height Systolic blood pressure Diastolic blood pressure Provider Name and Address Organization Details Last Updated DateTime 10/27/2024 970935.7 9932 g 38.1 kg/m2 167.64 cm 148 mm[Hg] 98 mm[Hg] Keerthi Hylton [facility] 10:37:05 Social History Question Answer Notes LastModified by Organizat ion Details LastModified Time Tobacco Smoking Status Never Smoker [employer], [facility] 08/07/2022 14:05:04 Do You Have An Advance Directive? No [email or web address] Information n ot available 12/26/2021 What Is Your Level Of Alcohol Consumption? None [email or web address] Information not available 12/26/2021 If You Are , What Was Your Level Of Alcohol Consumption Prior To ? Occasional [email or web address] Information not available 08/07/2022 How Many Years Have You Consumed Alcohol? 0 [email or web address] Information not available 12/26/2021 Are You Blind Or Do You Have Difficulty Seeing? No [email or web address] Information n ot available 12/26/2021 What Is Your Level Of Caffeine Consumption? Occasional [email or web address] Information not available 12/26/2021 How Much Tobacco Do You Chew? None [email or web address] Information not available 12/26/2021 In The 14 Days Before Symptom Onset, Have You Had Close Contact With A Laboratory-confirm ed COVID-19 While That Case Was Ill? No [email or web address] Information n ot available 12/26/2021 In The 14 Days Before Symptom Onset, Have You Had Close Contact With A Person Who Is Under Investigation For COVID-19 While That Person Was Ill? No [email or web address] Information not available 12/26/2021 Have You Been To An Area Known To Be High Risk For COVID-19? No [email or web address] Information not available 12/26/2021 Are You Deaf Or Do You Have Serious Difficulty Hearing? No [email or web address] Information not available 12/26/2021 What Type Of Diet Are You Following? REGULAR [email or web address] Information n ot available 12/26/2021 What Is The Highest Grade Or Level Of School You Have Completed Or The Highest Degree You Have Received? [id number] [email or web address] Information not available 12/26/2021 What Is Your Occupation? Homemaker [email or web address] Information not available 12/26/2021 Are There Any Guns Present In Your Home? No [email or web address] Information not available 12/26/2021 Do You Use Protection During Sex? No Information not available 12/26/2021 Do You Use Your Seat Belt Or Car Seat Routinely? Yes [email or web address] Information not available 12/26/2021 Do You Have Smoke And Carbon Monoxide Detectors In Your Home? Yes [email or web address] Information not available 12/26/2021 How Much Tobacco Do You Smoke? No Information not available 12/26/2021 Do You Feel Stressed (tense, Restless, Nervous, Or Anxious, Or Unable To Sleep At Night)? [id number] [email or web address] Information not available 12/26/2021 Do You Use Any Illicit Or Recreational Drugs? No [email or web address] Information not available 12/26/2021 Do You Use Sunscreen Routinely? Yes [email or web address] Information not available 12/26/2021 Has Tobacco Cessation Counseling Been Provided? No [email or web address] Information not available 08/07/2022 Have You Used IV Drugs? No [email or web address] Information not available 12/26/2021 Do You Or Have You Ever Used Any Other Forms Of Tobacco Or Nicotine? No Information not available 08/07/2022 Sex: Unknown Functional Status Question Answer Note LastModified by Organizat ion Details LastModified Time Do you have difficulty walking or climbing stairs? No Information not available 08/07/2022 Are you able to walk? [email or web address] Information not available 12/26/2021 Are you able to care for yourself? Yes Information not available 08/07/2022 Do you have difficulty dressing or bathing? No Information not available 08/07/2022 What is your exercise level? Occasional [email or web address] Information not available 12/26/2021 Mental Status None recorded. Family History Relationship Description Onset Age of this Age Resolved Age Notes LastModified by Organization Details LastModified Time Maternal Grandmother Kidney stone [email or web address] Not availabl e 12/26/2021 15:05:37 Medical History Condition Response Allergies (Food, seasonal, environmental ) N Other N Breast Cancer N Drug/Latex Allergies/Reactions N Blood Transfusion N Dermatologic Disorders N Lung Disease N Defects or Inherited Disease N Breast Problem N Gestational Diabetes N Hematologic disorders N Anesthesia Complications N History of STI N Deep Vein Thrombosis N Polycystic ovary syndrome N Anxiety Disorder N Autoimmune disease N Arthritis N Infertility N Polyps N Acid Reflux (GERD) N History of abnormal pap N Cancer N Stroke N Varicosities N Neurologic/Epilepsy N Endometriosis N High Cholesterol N Headaches Y Fibromyalgia N Kidney Disease N Heart Problems N Kidney or Bladder Problems Y Thyroid Problems N GI Problems N Eating Disorder N Anemia Y Art (IVF or FET) N Psychiatric Illness N Ovarian Cancer N Diabetes N Pulmonary (TB, Asthma) N Hepatitis/Liver Disease N No Past Medical History N Eczema N Urinary Tract Infection N Abuse/Domestic Violence N Asthma N Trauma/Violence N Depression/ depression N Heart Disease N Pre-Eclampsia N Hypertension Y Osteoporosis N Thrombophilias N Gynecological History Statement/Question Response Date of Last Mammogram Date of LMP 12/28/2023 On BCP's at Conception? N N Was last menstrual period normal Y STIs/STDs N HPV Vaccine N Duration of Flow (days) 6 Current Control Method Age at First Child 27 Frequency of Cycle (Q days) 30 Sexually Active? Y None Date of DEXA bone scan Age of first menstrual cycle 13 Date of Last Pap Smear 03/19/2024 Sexual Problems? N Desired Control Method None LMP Approximate N Obstetrics History GPAL:G 5 P 2 1 1 3 Type Value Full Term 2 Spontaneous 1 Premature 1 Living 3 Total 5 Past Encounters Encounter ID Performer Location Encounter Start Date Encounter Closed Date Diagnosis/Indication Diagnosis SNOMED-CT Code Diagnosis ICD10 Code Diagnosis Note [id number] Huong Denise [facility] [address],[place] [address] 10/13/2024 09:29:51 10/13/2024 10:10:21 Gestation period, 36 weeks 28859249 Z3A.36 Anemia 813053990 D64.9 [id number] [facility] [address],[place] [address] 10/20/2024 10:26:39 10/20/2024 11:10:49 Gestation period, 37 weeks 87706724 Z3A.37 continue vitamin [id number] [facility] [address],[place] [address] 10/27/2024 09:57:22 10/27/2024 10:34:57 Small for gestational age fetus 399237544 O36.5930 O43.113 O41.00X0 Z3A.38 [id number] Huong Denise [facility] [address],[place] [address] 10/27/2024 09:57:42 10/27/2024 10:41:42 Gestation period, 38 weeks 79364658 Z3A.38 continue vitamin Small for gestational age fetus 935367452 O36.[address] mast plan delivery Health Concerns Section Related Observation LastModified by Organization Detai ls LastModified Time None Recorded Concern Status LastModified by Organization Details LastModified Time None Recorded Payers Encounter Date Sequence Insurance Name Policy Number Policy Garcia Covered Member ID Garcia Member ID Guarantor Name 10/27/2024 1 [facility] (MEDICAID HMO) [id number] Luciana Rouse [id number] Luciana Rouse OBGyn Episode Ob Episode Information Episode Created Date Number of Fetuses Patient Bloodtype Patient rh Status Prepregnancy Weight lbs Domestic Partner Domestic Partner Phone Father Name Clinical Provider Trainer Status 05/05/20 24 1 O Positive 213 OPEN Fetus Data First Name Last Name Admitted to NICU Weight (g) Sex Living Outcome Pediatric Complications Fetus ID Race Codes Race Delivery Type [id number] Problems Problem Notes Problem Name Start Date End Date Resolution Snomed Code Not e Past history of gestational hypertension 822673356 basa daily Migraine 05/05/2024 01419687 Past history of section 237394871 for prev ia, has had one since, 2 total vaginal deliveries Placenta circumvallata 8577581 32wk growth us Anemia 790381284 HGB 10.8 L ow ferritin - Iron infusion order faxed 09/29scheduledt to start infusion on 10/13 and repeat weekly x4wk Aramis Calculation Initial Aramis Date Initial Exam Date Initial Exam Provider Initial Ultrasound Date Last Menstrual Period Date Ultra Sound Weeks Gestation 11/07/2024 04/20/2024 03/19/2024 12/28/2023 6 Eighteen To Twenty Week Aramis Update Ultra Sound Date Fundal Height At Umbil Quickening Date Ultra Sound Latest Weeks Gestation Final Aramis Confirmed By Final Aramis Confirmed Date Final Aramis Date Ultra Sound Latest Days Gestation 0 0 Pre- Flowsheet Flowsheet Date 05/05/2024 Castellano Score Blood Edema Fundus Height Fundus Units Glucose Ketones Leukocytes Nitrite Labor Signs Protein Cervic Dilation Cervic Effacement Cervic Station neg none none trace Type Weight in lbs Pre/Post Dialysis Refused Weight 217.240634562264 BP Diastolic BP Location Tested BP Systolic BP Type 76 116 Fetus Heart Rate Present Fetus Movement A Yes Comments Patient has had tooth ache f or about 6 months and had tooth pulled last week. Patient has been having headaches, nausea, dizziness and sensitive to light and sound. exedrin migraine worked prior to , ok to try exedrin tension first and if doesnt work will call out imitrex, teraful, new stress, no suicidal thoughts, going on vacation soon. reviewed US wnl, plan labs today f/u 3 weeks then 4 weeks with aanatomy scan Flowsheet Date 05/28/2024 Castellano Score Blood Edema Fundus Height Fundus Units Glucose Ketones Leukocytes Nitrite Labor Signs Protein Cervic Dilation Cervic Effacement Cervic Station none Type Weight in lbs Pre/Post Dialysis Refused 220.814392003506 BP Diastolic BP Location Tested BP Systolic BP Type 75 125 Fetus Heart Rate Present Fetus Movement A Yes Comments Patient states that has had some headaches and nausea. getting better, excedrin tension working, [place] trip was good! has anatomy scheduled. education and precautions f/u 4 weeks Flowsheet Date 06/16/2024 Castellano Score Blood Edema Fundus Height Fundus Units Glucose Ketones Leukocytes Nitrite Labor Signs Protein Cervic Dilation Cervic Effacement Cervic Station Type Weight in lbs Pre/Post Dialysis Refused BP Diastolic BP Location Tested BP Systolic BP Type Fetus Heart Rate Present Fetus Movement Comments Flowsheet Date 06/16/2024 Castellano Score Blood Edema Fundus Height Fundus Units Glucose Ketones Leukocytes Nitrite Labor Signs Protein Cervic Dilation Cervic Effacement Cervic Station none Type Weight in lbs Pre/Post Dialysis Refused 221.484377053344 BP Diastolic BP Location Tested BP Systolic BP Type 73 119 Fetus Heart Rate Present Fetus Movement A Yes Comments doing well anatomy incomplet e, +FM, doing well, education and precautions would like to not be induced if able, f/u 4 weeks with anatomy scan Flowsheet Date 07/21/2024 Castellano Score Blood Edema Fundus Height Fundus Units Glucose Ketones Leukocytes Nitrite Labor Signs Protein Cervic Dilation Cervic Effacement Cervic Station Type Weight in lbs Pre/Post Dialysis Refused BP Diastolic BP Location Tested BP Systolic BP Type Fetus Heart Rate Present Fetus Movement Comments Flowsheet Date 07/21/2024 Castellano Score Blood Edema Fundus Height Fundus Units Glucose Ketones Leukocytes Nitrite Labor Signs Protein Cervic Dilation Cervic Effacement Cervic Station Type Weight in lbs Pre/Post Dialysis Refused 229.961612510629 BP Diastolic BP Location Tested BP Systolic BP Type 80 125 Fetus Heart Rate Present Fetus Movement A Yes Comments efw 19%, +Fm, doing well, pr ecautions and education f/u 4 weeks Flowsheet Date 08/25/2024 Castellano Score Blood Edema Fundus Height Fundus Units Glucose Ketones Leukocytes Nitrite Labor Signs Protein Cervic Dilation Cervic Effacement Cervic Station Type Weight in lbs Pre/Post Dialysis Refused BP Diastolic BP Location Tested BP Systolic BP Type Fetus Heart Rate Present Fetus Movement Comments Flowsheet Date 08/25/2024 Castellano Score Blood Edema Fundus Height Fundus Units Glucose Ketones Leukocytes Nitrite Labor Signs Protein Cervic Dilation Cervic Effacement Cervic Station Type Weight in lbs Pre/Post Dialysis Refused 232.19656799516 BP Diastolic BP Location Tested BP Systolic BP Type 86 137 Fetus Heart Rate Present Fetus Movement A Yes Comments Patient is having some heada ches, BH contractions and nausea. reviewed precautions, education +FM US reviewed efw 17% AC 11 %, f/u 2 weeks, mood good Flowsheet Date 09/08/2024 Castellano Score Blood Edema Fundus Height Fundus Units Glucose Ketones Leukocytes Nitrite Labor Signs Protein Cervic Dilation Cervic Effacement Cervic Station neg none Type Weight in lbs Pre/Post Dialysis Refused 233.265421250669 BP Diastolic BP Location Tested BP Systolic BP Type 72 134 Fetus Heart Rate Present Fetus Movement A Yes Comments Patient is having BH Contrac tions and nausea. precautions and education +FM, will meet dr. brown next appt. rsv vaccine rx given ok at 32 weeks, call for preadmit Flowsheet Date 09/27/2024 Castellano Score Blood Edema Fundus Height Fundus Units Glucose Ketones Leukocytes Nitrite Labor Signs Protein Cervic Dilation Cervic Effacement Cervic Station Type Weight in lbs Pre/Post Dialysis Refused BP Diastolic BP Location Tested BP Systolic BP Type Fetus Heart Rate Present Fetus Movement Comments Flowsheet Date 09/27/2024 Castellano Score Blood Edema Fundus Height Fundus Units Glucose Ketones Leukocytes Nitrite Labor Signs Protein Cervic Dilation Cervic Effacement Cervic Station neg none Type Weight in lbs Pre/Post Dialysis Refused Weight 233.493347710341 BP Diastolic BP Location Tested BP Systolic BP Type 86 L arm 128 sitting Fetus Heart Rate Present A Present Fetus Movement A Yes Comments Patient c/o slight nausea, B raxton arias. Good movement. Had migraine last week and was worried about elevated BPs, was seen at [place] and workup was negative. Anemic, will recheck levels today. EFW 18%, SONIA wnl. Discussed GBS for next visit. RTC 2 weeks. Flowsheet Date 10/13/2024 Castellano Score Blood Edema Fundus Height Fundus Units Glucose Ketones Leukocytes Nitrite Labor Signs Protein Cervic Dilation Cervic Effacement Cervic Station neg none 37 cm Type Weight in lbs Pre/Post Dialysis Refused Weight 236.239535890278 BP Diastolic BP Location Tested BP Systolic BP Type 75 132 Fetus Heart Rate Present A 136 Fetus Movement A Yes Comments Patient states that is havin g 1st iron infussion today. Patient states that is having headaches, tired, short of breathe and contractions. reviewed precautions, education, f/u one week, +FM gbs collected Flowsheet Date 10/20/2024 Castellano Score Blood Edema Fundus Height Fundus Units Glucose Ketones Leukocytes Nitrite Labor Signs Protein Cervic Dilation Cervic Effacement Cervic Station neg none Type Weight in lbs Pre/Post Dialysis Refused Weight 236.296615903833 BP Diastolic BP Location Tested BP Systolic BP Type 92 137 Fetus Heart Rate Present Fetus Movement A Yes Comments Patient is having swelling. check labs today, precautions and education +FM, delines cervical exam cabrales but nothing thats unusual for her, denies epigastric pain, f/u one week Flowsheet Date 10/27/2024 Castellano Score Blood Edema Fundus Height Fundus Units Glucose Ketones Leukocytes Nitrite Labor Signs Protein Cervic Dilation Cervic Effacement Cervic Station Type Weight in lbs Pre/Post Dialysis Refused BP Diastolic BP Location Tested BP Systolic BP Type Fetus Heart Rate Present Fetus Movement Comments Flowsheet Date 10/27/2024 Castellano Score Blood Edema Fundus Height Fundus Units Glucose Ketones Leukocytes Nitrite Labor Signs Protein Cervic Dilation Cervic Effacement Cervic Station Type Weight in lbs Pre/Post Dialysis Refused 236.968415277337 BP Diastolic BP Location Tested BP Systolic BP Type 98 148 Fetus Heart Rate Present Fetus Movement A Yes Comments doing well, +FM, sonia 5 cm ov erall growth 17 but abd dropped to 7%, discussed with dr. mast plan delivery Menstrual History Last Menstrual Date Menses Monthly On Bcp Conception Prior Menses Frequency Hcg Plus Date Menarche Onset Age 0512/28/2023 Delivery Information Delivery Date Delivery Type Labor Anesthesia Weeks Gestation Incision Type Labor Labor Length Hrs Delivered By Post Complications Tubal Sterilization Discharge Date Comments Discharge Information Feeding Method Contraceptive Method Maternal HG B and HCT Levels
--- OUTSIDE RECORDS SUMMARY | 2024-10-27 13:39 | XMS_ITS | Data Portability ---
Author Organization [facility] Turner Address [address] [place] [address] [place] [address] Assessment Encounter Date Assessment Date Assessment LastModified by Organization Details LastModified Time 10/13/2024 10/13/2024 Patient is _36__weeks . Discussed plan. Not available 10/13/2024 10:04:59 10/20/2024 10/20/2024 Patient is __37_weeks . Discussed plan. [email or web address] Not available 10/20/2024 10:43:30 10/27/2024 10/27/2024 Patient is _38__weeks . Discussed plan. [email or web address] Not available 10/27/2024 10:40:02 Plan of Treatment Reminders Order Date Submit Date Provider Last Modified By Organization Details Last Modified Time Details Appointments U/S OB GROWTH 2024 09:00A M ULTRASOUND Not available Not available Not available OB ROUTINE 2024 09:30A M Huong Denise CNM Not available Not available Not available OB ROUTINE 2024 09:15A M Huong Denise CNM Not available Not available Not available Lab None recorde d. Referral None recorde d. Procedures None recorde d. Surgeries None recorde d. Imaging US, obstetr ic, follow- up 2024 025 [email or web address] [address], [address], [place], [address], 10/27/2024 12:06:16 US, obstetr ic, biophys ical profile 2024 025 JOSE [address], [address], [place], [address], 10/27/2024 12:03:01 US, doppler , umbilic al artery velocim etry 2024 025 JOSE [address], [address], [place], [address], 10/27/2024 12:03:11 US, obstetr ic, follow- up 2024 025 [email or web address] [address], [address], [place], [address], 09/27/2024 22:46:02 Medication Orders None recorde d. Patient TargetsNo targets recorded. Patient InstructionsNo instructions recorded. Reason for Referral None Reported. Results Created Date Observation Date Name Description Value Unit Range Abnormal Flag Note LastModifiedBy Organization Detail LastModifiedTime 09/27/1909/27/2024 CBC W/DIF F WBC 6.1 10'3/ uL 3.5-10 .5 Not Available [facility] (Lab) [address] [facility], [place], [address], 09/28/2024 06:08:21 09/27/1909/27/2024 CBC W/DIF F RBC 3.90 10'6/ uL (based on docume nted legal sex) 3.80-5 .20 Not Available [facility] (Lab) [address] , [place], [address], 09/28/2024 06:08:21 09/27/1909/27/2024 CBC W/DIF F HGB 10.8 g/dL (based on docume nted legal sex) 11.6-1 5.4 low Not Available [facility] (Lab) [address], [place], [address], 09/28/2024 06:08:21 09/27/19 25 09/27/2024 CBC W/DIF F HCT 33.6 % (based on docume nted legal sex) 34.0-4 5.0 low Not Available [facility] (Lab) [address], [place], [address], 09/28/2024 06:08:21 09/27/19 25 09/27/2024 CBC W/DIF F MCV 86.2 fL 80.0-9 9.0 Not Available [facility] (Lab) [address] [facility], [place], [address], 09/28/2024 06:08:21 09/27/19 25 09/27/2024 CBC W/DIF F MCH 27.7 pg 27.0-3 4.0 Not Available [facility] (Lab) [address], [place], [address], 09/28/2024 06:08:21 09/27/1909/27/2024 CBC W/DIF F MCHC 32.1 g/dL 32.0-3 5.5 Not Available [facility] (Lab) [address] [facility], [place], [address], 09/28/2024 06:08:21 09/27/1909/27/2024 CBC W/DIF F RDW 13.7 % 11.0-1 5.0 Not Available [facility] (Lab) [address] [facility], [place], [address], 09/28/2024 06:08:21 09/27/1909/27/2024 CBC W/DIF F plt 285 10'3/ uL 150-40 0 Not Available [facility] (Lab) [address] [facility], [place], [address], 09/28/2024 06:08:21 09/27/1909/27/2024 CBC W/DIF F MPV 11.7 fL 8.8-12 .1 Not Available [facility] (Lab) [address] [facility], [place], [address], 09/28/2024 06:08:21 09/27/1909/27/2024 CBC W/DIF F neutrophils 73.0 % 34.0-7 3.0 Not Available [facility] (Lab) [address] [facility], [place], [address], 09/28/2024 06:08:21 09/27/19 25 09/27/2024 CBC W/DIF F lymphocytes 17.2 % 15.0-5 0.0 Not Available [facility] (Lab) [address] [place], [address], 09/28/2024 06:08:21 09/27/19 25 09/27/2024 CBC W/DIF F monocytes 8.5 % 1.0-15 .0 Not Available [facility] (Lab) [address] [place], [address], 09/28/2024 06:08:21 09/27/19 25 09/27/2024 CBC W/DIF F eosinophils 0.8 % 0.0-8. 0 Not Available [facility] (Lab) [address] [facility], [place], [address], 09/28/2024 06:08:21 09/27/1909/27/2024 CBC W/DIF F basophils 0.2 % 0.0-2. 0 Not Available [facility] (Lab) [address] [place], [address], 09/28/2024 06:08:21 09/27/1909/27/2024 CBC W/DIF F immature granulocytes 0.3 % no define d refere nce range Immat ure Granu locyt es (IG) repre sents autom ated enume ratio n of Metam yeloc ytes, Myelo cytes and Promy elocy kellen when IG is < 5%. Blast s are not inclu ded in IG and repor ryan separ ately if prese nt. Not Available [facility] (Lab) [address] [place], [address], 09/28/2024 06:08:21 09/27/19 25 09/27/2024 CBC W/DIF F absolute neutrophils 4.5 10'3/ uL 1.5-8. 0 Not Available [facility] (Lab) [address] [facility], [place], [address], 09/28/2024 06:08:21 09/27/19 25 09/27/2024 CBC W/DIF F absolute lymphocytes 1.1 10'3/ uL 1.0-4. 0 Not Available [facility] (Lab) [address] [facility], [place], [address], 09/28/2024 06:08:21 09/27/1909/27/2024 CBC W/DIF F absolute monocytes 0.5 10'3/ uL 0.2-1. 0 Not Available [facility] (Lab) [address] [facility], [place], [address], 09/28/2024 06:08:21 09/27/19 25 09/27/2024 CBC W/DIF F absolute eosinophils 0.1 10'3/ uL 0.0-0. 6 Not Available [facility] (Lab) [address] [facility], [place], [address], 09/28/2024 06:08:21 09/27/19 25 09/27/2024 CBC W/DIF F absolute basophils 0.0 10'3/ uL 0.0-0. 3 Not Available [facility] (Lab) [address] [facility], [place], [address], 09/28/2024 06:08:21 09/27/1909/27/2024 CBC W/DIF F absolute immature granulocytes 0.0 10'3/ uL 0.00-0 .10 Refer ence range s for nonbi nary/ inter sex or unspe cifie d gende r patie nts have not been estab lishe d. Pleas e [facility] for range s estab lishe d for cisge nder patie nts and evalu ate in the clini rambo abbie xt of the indiv idual patie nt: [email or web address] :[email or web address] johnson [email or web address].or g/Gen derX Not Available [facility] (Lab) [address] [facility], [place], [address], 09/28/2024 06:08:21 09/27/19 25 09/27/2024 REGIS TIN / IRON / TRANS REGIS N / TIBC iron 69 ug/dL 40-170 Not Available [facility] (Lab) [address] [place], [address], 09/28/2024 06:08:22 09/27/19 25 09/27/2024 ERGIS TIN / IRON / TRANS REGIS N / TIBC transferrin 384 mg/dL 200-36 0 high Not Available [facility] (Lab) [address] [facility], [place], [address], 09/28/2024 06:08:22 09/27/19 25 09/27/2024 REGIS TIN / IRON / TRANS REGIS N / TIBC ferritin 5.4 NG/mL 8.0-25 2.0 low Not Available [facility] (Lab) [address] [facility], [place], [address], 09/28/2024 06:08:22 09/27/19 25 09/27/2024 REGIS TIN / IRON / TRANS REGIS N / TIBC TIBC 538 ug/dL 250-45 0 high Not Available [facility] (Lab) [address] [place], [address], 09/28/2024 06:08:22 09/27/19 25 09/27/2024 REGIS TIN / IRON / TRANS REGIS N / TIBC iron saturation 13 % 20-55 low Not Available [facility] (Lab) [address] [place], [address], 09/28/2024 06:08:22 10/13/19 25 10/13/2024 CULTU RE: GROUP B STREP SCREE N, REFLE X SUSCE PTIBI LITY result report SEE RESULT S BELOW Test: Cultu re: Group B Strep , Refle x Susce ptibi lity ([facility]/ [facility]/K H/[facility] ) Speci men Sourc e: Vagin a/Rec wilfrid Speci men Type: Vagin al/Re ctal Speci men Date: 2024 1456 Resul t Date: 025 1400 Resul t Statu s: Final resul t Abnor mal: No Resul ting Lab: [facility] [address] [facility] [address] Tel: [phone] CULTU RE ----- ----- ----- --- No Group B strep isola ryan at 2 days (jona ctive broth enhan cemen t) Not Available [facility] (Lab) [address] [place], [address], 10/16/2024 15:02:38 10/21/19 25 10/20/2024 CMP(C OMPRE HENSI VE METAB OLIC PANEL ) sodium 139 mmol/ L 133-14 6 Not Available [facility] (Lab) [address] [place], [address], 10/21/2024 04:48:55 10/21/19 25 10/20/2024 CMP(C OMPRE HENSI VE METAB OLIC PANEL ) potassium 3.9 mmol/ L 3.5-5. 1 Not Available [facility] (Lab) [address] [place], [address], 10/21/2024 04:48:55 10/21/19 25 10/20/2024 CMP(C OMPRE HENSI VE METAB OLIC PANEL ) chloride 104 mmol/ L 98-107 Not Available [facility] (Lab) [address] [place], [address], 10/21/2024 04:48:55 10/21/19 25 10/20/2024 CMP(C OMPRE HENSI VE METAB OLIC PANEL ) carbon dioxide 26 mmol/ L 21-31 Not Available [facility] (Lab) [address] [place], [address], 10/21/2024 04:48:55 10/21/19 25 10/20/2024 CMP(C OMPRE HENSI VE METAB OLIC PANEL ) anion gap 9 mmol/ L 4-13 Not Available [facility] (Lab) [address] [facility], [place], [address], 10/21/2024 04:48:55 10/21/19 25 10/20/2024 CMP(C OMPRE HENSI VE METAB OLIC PANEL ) blood urea nitrogen 7 mg/dL 7-25 Not Available [facility] (Lab) [address] [facility] [address], [place], [address], 10/21/2024 04:48:55 10/21/19 25 10/20/2024 CMP(C OMPRE HENSI VE METAB OLIC PANEL ) creatinine 0.74 mg/dL 0.60-1 .30 Not Available [facility] (Lab) [address] [facility], [place], [address], 10/21/2024 04:48:55 10/21/19 25 10/20/2024 CMP(C OMPRE HENSI VE METAB OLIC PANEL ) egfrcr (CKD-epi 2020) >90 mL/mi n/1.7 3_m2 >=60 Not Available [facility] (Lab) [address] [facility], [place], [address], 10/21/2024 04:48:55 10/21/19 25 10/20/2024 CMP(C OMPRE HENSI VE METAB OLIC PANEL ) calcium 8.2 mg/dL 8.3-10 .5 low Not Available [facility] (Lab) [address] [place], [address], 10/21/2024 04:48:55 10/21/19 25 10/20/2024 CMP(C OMPRE HENSI VE METAB OLIC PANEL ) glucose 81 mg/dL 70-100 Not Available [facility] (Lab) [address] [place], [address], 10/21/2024 04:48:55 10/21/19 25 10/20/2024 CMP(C OMPRE HENSI VE METAB OLIC PANEL ) protein, total 5.9 g/dL 6.4-8. 3 low Not Available [facility] (Lab) [address] [facility], [place], [address], 10/21/2024 04:48:55 10/21/19 25 10/20/2024 CMP(C OMPRE HENSI VE METAB OLIC PANEL ) albumin 3.4 g/dL 3.5-5. 0 low Not Available [facility] (Lab) [address] [facility], [place], [address], 10/21/2024 04:48:55 10/21/19 25 10/20/2024 CMP(C OMPRE HENSI VE METAB OLIC PANEL ) ALT 16 units /L 9-43 Not Available [facility] (Lab) [address] [facility], [place], [address], 10/21/2024 04:48:55 10/21/19 25 10/20/2024 CMP(C OMPRE HENSI VE METAB OLIC PANEL ) alkaline phosphatase 119 units /L 34-104 high Not Available [facility] (Lab) [address] [place], [address], 10/21/2024 04:48:55 10/21/19 25 10/20/2024 CMP(C OMPRE HENSI VE METAB OLIC PANEL ) AST 12 units /L 13-39 low Not Available [facility] (Lab) [address] [place], [address], 10/21/2024 04:48:55 10/21/19 25 10/20/2024 CMP(C OMPRE HENSI VE METAB OLIC PANEL ) bilirubin, total 0.2 mg/dL 0.2-1. 2 Not Available [facility] (Lab) [address] [place], [address], 10/21/2024 04:48:55 10/21/19 10/20/2024 URIC ACID uric acid 4.8 mg/dL 2.3-6. 6 Not Available [facility] (Lab) [address], [place], [address], 10/21/2024 04:48:56 09/20/1909/20/2024 non-s tress test No observ ation record ed. [address] [facility] [address], [place], [address], 09/21/2024 12:18:12 09/27/19 25 09/27/2024 US, obste tric, follo w-up No observ ation record ed. [email or web address] [address], [place], [address], 09/27/2024 17:19:24 09/27/19 25 09/27/2024 US, obste tric, follo w-up No observ ation record ed. [email or web address], [place], [address], 09/28/2024 09:57:45 10/28/19 25 10/27/2024 US, obste tric, follo w-up No observ ation record ed. [email or web address] [address], [place], [address], 10/27/2024 12:02:51 10/28/19 25 10/27/2024 US, obste tric, bioph ysica l profi le No observ ation record ed. [email or web address] [address], [place], [address], 10/27/2024 12:03:01 10/28/19 25 10/27/2024 US, doppl er, umbil ical arter y veloc imetr y No observ ation record ed. [email or web address] [address], [place], [address], 10/27/2024 12:03:11 10/28/19 25 10/27/2024 US, obste tric, follo w-up No observ ation record ed. [email or web address] [address], [place], [address], 10/27/2024 10:45:11 Result Notes None recorded. Problems Name Problem SNOMED Code Status Onset Date Resolution Date Notes Provider Name and Address Organization Details Recorded Time Past pregnanc y history of section 955062827 Active for previa, has had one since, 2 total vaginal deliveri es Huong MathurGregory Denise, CN [address], [place], [address], [place] [facility] 4 16:35:31 Past pregnanc y history of gestatio nal hyperten chelo 229542844 Active basa daily Prabha Reyna null, [facility] 4 18:12:09 Past pregnanc y history of section 675370949 Completed for previa, wants TOLAC Rula Cho null, [facility] 3 15:53:39 Past pregnanc y history of gestatio nal hyperten chelo 928959482 Completed baseline PIH labs, ASA Rula Cho null, [facility] 3 15:53:39 Pregnanc y 44718241 Active 2023 Keerthi Hylton null, [facility] 4 15:45:48 Migraine 81766615 Active 2023 Keerthi Hylton null, [facility] 4 15:49:57 Migraine 66919191 Active 2023 Keerthi Hylton null, [facility] 4 15:49:57 Past pregnanc y history of section 909810072 Active for previa, has had one since, 2 total vaginal deliveri es Huong Denise, CNM [address], [place], [address], [place] [facility] 4 16:35:31 Past pregnanc y history of gestatio nal hyperten chelo 159328897 Active basa daily Prabha Reyna null, [facility] 4 18:12:09 Placenta circumva llata 5308662 Active 32wk growth Prabha Reyna [facility], [facility] 4 08:03:45 Placenta circumva llata 0634498 Active 32wk growth Prabha Reyna [facility], [facility] 4 08:03:45 Anemia 280717190 Active HGB 10.8 Low ferritin - Iron infusion order faxed 212 schedule dt to start infusion on 10/13 and repeat weekly x4wk Prabha Reyna [facility], [facility] 5 14:24:03 Anemia 389535408 Active HGB 10.8 Low ferritin - Iron infusion order faxed 2/12 schedule dt to start infusion on 10/13 and repeat weekly x4wk Prabha Reyna [facility], [facility] 5 14:24:03 Problem Notes None recorded. Procedures Surgical History Date Name Laterality Status Provider Name and Address Organization Details Recorded Time 04/18/20 24 tooth extraction completed Keerthi [facility] 08/25/2024 10:55:16 03/19/20 24 Date of Last Pap Smear completed Keerthi [facility] 03/19/2024 12:21:26 07/18/20 21 extracorporeal shockwave lithotripsy of calculus of kidney completed Keerthi [facility] 02/02/2022 16:07:19 12/20/19 20 section completed Keerthi [facility] 02/02/2022 16:07:03 Imaging Results Imaging Date Name Status LastModified by Organiz ation Details LastModified Time 09/20/2024 non-stress test completed [address], [place], [address], 09/21/2024 12:18:12 09/27/2024 US, obstetric, follow-up completed [email or web address] [address], [place], [address], 09/27/2024 17:19:24 09/27/2024 US, obstetric, follow-up completed [email or web address], [place], [address], 09/28/2024 09:57:45 10/27/2024 US, obstetric, follow-up completed [email or web address] [address], [place], [address], 10/27/2024 12:02:51 10/27/2024 US, obstetric, biophysical profile completed [email or web address] [place], [place], [address], 10/27/2024 12:03:01 10/27/2024 US, doppler, umbilical artery velocimetry completed [email or web address] [address], [place], [address], 10/27/2024 12:03:11 10/27/2024 US, obstetric, follow-up completed [email or web address] [address], [place], [address], 10/27/2024 10:45:11 Procedure Notes None recorded. Medical Equipment None [...] Available Not Available Vitals Date Recorded Body height Body mass index (BMI) Body weight Systolic blood pressure Diastolic blood pressure Provider Name and Address Organization Details Last Updated DateTime 09/27/2024 167.64 cm 37.6 kg/m2 918748.0 2 g 128 mm[Hg] 86 mm[Hg] Nora Ghotra [facility] 5 17:05:20 Date Recorded Body height Body mass index (BMI) Body weight Systolic blood pressure Diastolic blood pressure Provider Name and Address Organization Details Last Updated DateTime 10/13/2024 167.64 cm 38.1 kg/m2 722845.8 g 132 mm[Hg] 75 mm[Hg] Keerthi Hylton [facility] 5 09:50:00 Date Recorded Body height Body mass index (BMI) Body weight Systolic blood pressure Diastolic blood pressure Provider Name and Address Organization Details Last Updated DateTime 10/20/2024 167.64 cm 38.1 kg/m2 519392.8 g 137 mm[Hg] 92 mm[Hg] Keerthi Hylton [facility] 5 10:43:42 Date Recorded Body weight Body mass index (BMI) Body height Systolic blood pressure Diastolic blood pressure Provider Name and Address Organization Details Last Updated DateTime 10/27/2024 420014.7 9932 g 38.1 kg/m2 167.64 cm 148 mm[Hg] 98 mm[Hg] Keerthi Hylton [facility] 5 10:37:05 Social History Question Answer Notes LastModified by [email or web address] ion Details LastModified Time Tobacco Smoking Status Never Smoker [employer], [facility] 08/07/2022 14:05:04 Do You Have An Advance Directive? No [email or web address] Information n ot available 12/26/2021 What Is Your Level Of Alcohol Consumption? None [email or web address] Information not available 12/26/2021 If You Are , What Was Your Level Of Alcohol Consumption Prior To ? Occasional [email or web address] Information not available 08/07/2022 How Many Years Have You Consumed Alcohol? 0 [email or web address] Information not available 12/26/2021 Are You Blind Or Do You Have Difficulty Seeing? No Information n ot available 12/26/2021 What Is Your Level Of Caffeine Consumption? Occasional [email or web address] Information not available 12/26/2021 How Much Tobacco Do You Chew? None [email or web address] Information not available 12/26/2021 In The 14 Days Before Symptom Onset, Have You Had Close Contact With A Laboratory-confirm ed COVID-19 While That Case Was Ill? No [email or web address] Information n ot available 12/26/2021 In The 14 Days Before Symptom Onset, Have You Had Close Contact With A Person Who Is Under Investigation For COVID-19 While That Person Was Ill? No [email or web address] Information not available 12/26/2021 Have You Been To An Area Known To Be High Risk For COVID-19? No [email or web address] Information not available 12/26/2021 Are You Deaf Or Do You Have Serious Difficulty Hearing? No [email or web address] Information not available 12/26/2021 What Type Of Diet Are You Following? REGULAR [email or web address] Information n ot available 12/26/2021 What Is The Highest Grade Or Level Of School You Have Completed Or The Highest Degree You Have Received? PP45107-3 [email or web address] Information not available 12/26/2021 What Is Your Occupation? Homemaker [email or web address] Information not available 12/26/2021 Are There Any Guns Present In Your Home? No [email or web address] Information not available 12/26/2021 Do You Use Protection During Sex? No [email or web address] Information not available 12/26/2021 Do You Use Your Seat Belt Or Car Seat Routinely? Yes [email or web address] Information not available 12/26/2021 Do You Have Smoke And Carbon Monoxide Detectors In Your Home? Yes Information not available 12/26/2021 How Much Tobacco Do You Smoke? No Information not available 12/26/2021 Do You Feel Stressed (tense, Restless, Nervous, Or Anxious, Or Unable To Sleep At Night)? [id number] [email or web address] Information not available 12/26/2021 Do You Use Any Illicit Or Recreational Drugs? No [email or web address] Information not available 12/26/2021 Do You Use Sunscreen Routinely? Yes [email or web address] Information not available 12/26/2021 Has Tobacco Cessation Counseling Been Provided? No [email or web address] Information not available 08/07/2022 Have You Used IV Drugs? No [email or web address] Information not available 12/26/2021 Do You Or Have You Ever Used Any Other Forms Of Tobacco Or Nicotine? No [email or web address] Information not available 08/07/2022 Sex: Unknown Functional Status Question Answer Note LastModified by Organizat ion Details LastModified Time Do you have difficulty walking or climbing stairs? No Information not available 08/07/2022 Are you able to walk? YESWOREST [email or web address] Information not available 12/26/2021 Are you able to care for yourself? Yes [email or web address] Information not available 08/07/2022 Do you have difficulty dressing or bathing? No [email or web address] Information not available 08/07/2022 What is your exercise level? Occasional [email or web address] Information not available 12/26/2021 Mental Status None recorded. Family History Relationship Description Onset Age of this Age Resolved Age Notes LastModified by Organization Details LastModified Time Maternal Grandmother Kidney stone [email or web address] Not availabl e 12/26/2021 15:05:37 Medical History [...] SNOMED-CT Code Diagnosis ICD10 Code Diagnosis Note [id number] Marta Tre [facility] [address] [address] 12/26/2021 13:47:37 12/26/2021 14:34:03 [id number] [facility] [address],[place] [address] 12/26/2021 13:48:48 12/26/2021 15:56:53 Amenorrhea 12948337 N91.2 [id number] Patricia Mcnamara MD [address],[place] [address] 01/28/2022 16:42:34 01/29/2022 13:46:24 Routine care 712699011 Z34.02 [id number] [facility] [address],[place] [address] 02/25/2022 10:00:37 02/25/2022 14:01:47 screening for malformation 007596653 Z36.3 [id number] Patricia Mcnamara MD [place] [address],[place] [address] 02/25/2022 10:01:19 02/25/2022 14:39:37 Routine care 326202241 Z34.02 [id number] [facility] [address],[place] [address] 03/27/2022 15:02:09 03/27/2022 15:49:13 screening 566775765 Z36.2 [id number] Huong Denise [facility] [address],[place] [address] 03/27/2022 15:02:49 03/27/2022 17:34:09 Routine care 516716045 Z34.92 Headache 91169164 R51.9 [id number] Huong Denise [facility] [address] [place] [address] 04/19/2022 11:13:56 04/19/2022 12:18:29 Routine care 452092072 Z34.92 [id number] [facility] [address] [place] [address] 05/01/2022 16:16:10 05/01/2022 16:58:47 Routine care 243961741 Z34.92 [id number] Huong Denise [facility] [address],[place] [address] 05/22/2022 18:10:06 05/22/2022 18:40:34 Routine care 009289113 Z34.92 [id number] [facility] [address],[place] [address] 06/07/2022 16:09:42 06/07/2022 16:54:32 Routine care 693091080 Z34.92 [id number] Patricia Mcnamara MD [place] [address],[place] [address] 06/17/2022 15:16:24 06/17/2022 16:09:17 Past history of section 915908609 Z98.890 Routine an tenatal care 132047278 Z34.02 [id number] Patricia Mcnamara MD [place] [address],[place] [address] 06/25/2022 11:12:25 06/25/2022 14:54:36 Routine care 126483327 Z34.02 Past pregn seema history of gestational hypertension 255715089 Z87.59 [id number] [facility] [facility] [address],[place] [address] 06/27/2022 15:08:44 06/27/2022 15:57:24 [id number] [facility] [address],[place] [address] 07/03/2022 16:58:55 07/03/2022 17:51:56 Routine care [id number] Z34.92 [id number] [facility] [address],[place] [address] 07/05/2022 10:42:08 07/05/2022 11:23:15 Routine care 160364799 Z34.92 [id number] Huong Denise [facility] [address],[place] [address] 1 08/07/2022 14:04:55 08/07/2022 18:25:05 care 290914444 Z39.2 [id number] [facility] [address],[place] [address] 1 03/18/2024 17:18:13 03/19/2024 04:15:05 screening 665620618 Z36.87 Z3A.01 [id number] Huong Denise [facility] [address],[place] [address] 1 03/19/2024 11:39:40 03/19/2024 13:02:15 Amenorrhea 75271415 N91.2 continue vitamin+UP TTOLACpap collectedf /u 12 week new ob and first look Gynecologi c examination 06463357 Z01.419 [id number] Miladys [facility] [address],[place] [address] 1 04/01/2024 17:35:25 04/01/2024 17:58:40 [id number] [facility] [address],[place] [address] 1 04/30/2024 15:57:00 04/30/2024 16:29:53 screening [id number] Z36.82 Z3A.12 [id number] Huong Denise [facility] [address],[place] [address] 1 05/05/2024 15:10:51 05/05/2024 16:36:04 Routine care 814866491 Z34.92 Z3A.13 Gestation period, 12 weeks 84989506 Z3A.12 continue vitamin Migraine 90750159 G43.90 9 exedrin tension first line, if unable to break migraine, can try imitrex, if not working call and will try reglan/alex edryl or fioricet [id number] Huong Denise [facility] [address],[place] [address] 1 05/28/2024 12:28:55 05/28/2024 12:51:23 Gestation period, 16 weeks 95173419 Z3A.16 continue vitamin [id number] [facility] [address],[place] [address] 1 06/16/2024 09:51:08 06/16/2024 11:16:54 screening for malformation 143238621 Z36.3 Z3A.19 [id number] Huong Denise [facility] [address],[place] [address] 1 06/16/2024 09:51:19 06/16/2024 14:40:28 Gestation period, 19 weeks 25838261 Z3A.19 continue vitamin [id number] [facility] [address],[place] [address] 1 07/21/2024 09:54:07 07/21/2024 10:56:30 screening 273533408 Z36.2 O43.112 Z3A.24 [id number] [facility] [address],[place] [address] 1 07/21/2024 09:54:19 07/21/2024 11:26:14 Gestation period, 24 weeks 189125862 Z3A.24 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 [address],[place] [address] 1 08/25/2024 09:52:33 08/25/2024 10:31:13 Small for gestational age fetus 564571356 O36.5930 Z3A.29 [id number] [facility] [address] [place] [address] 1 08/25/2024 09:53:10 08/25/2024 11:23:23 Gestation period, 29 weeks 95119383 Z3A.29 continue vitamin Placenta circumvallata 1231283 O43.119 [id number] Huong Denise [facility] [address] [place] [address] 09/08/2024 10:17:17 09/08/2024 10:51:14 Gestation period, 31 weeks 73487499 Z3A.31 continue vitamin [id number] Lupe [facility] [address],[place] [address] 09/27/2024 16:23:10 09/27/2024 16:55:36 Small for gestational age fetus 170291493 O36.5930 O43.113 Z3A.34 [id number] FELIPE CUEVAS MD [facility] [address],[place] [address] 09/27/2024 16:23:25 09/29/2024 03:16:22 Anemia of 23058514 O99.019 - Hgb 10.2 on 09/20/24- having difficulty tolerating PO Fe- repeat labs today- discussed IV Fe infusions if Hgb continues to drop Gestation period, 34 weeks 79398431 Z3A.34 - continue PNV Past pregn seema history of section 918737981 Z98.890 - , PCS for placenta previa, followed by - plan for [id number] Huong Denise [facility] [address],[place] [address] 10/13/2024 09:29:51 10/13/2024 10:10:21 Gestation period, 36 weeks 93171761 Z3A.36 Anemia 858950335 D64.9 [id number] Huong Denise [facility] [address],[place] [address] 10/20/2024 10:26:39 10/20/2024 11:10:49 Gestation period, 37 weeks 77689262 Z3A.37 continue vitamin [id number] Miladys Martínez [facility] [address],[place] [address] 1 10/27/2024 09:57:22 10/27/2024 10:34:57 Small for gestational age fetus 105614768 O36.5930 O43.113 O41.00X0 Z3A.38 [id number] Huong Denise [facility] [address],[place] [address] 10/27/2024 09:57:42 10/27/2024 10:41:42 Gestation period, 38 weeks 93311706 Z3A.38 continue vitamin Small for gestational age fetus 814804569 O36.[address] mast plan delivery Health Concerns Section Related Observation LastModified by Organization Detai ls LastModified Time None Recorded Concern Status LastModified by Organization Details LastModified Time None Recorded Advance Directives Directive N: Payers Encounter Date Sequence Insurance Name Policy Number Policy Garcia Covered Member ID Garcia Member ID Guarantor Name 09/27/2024 1 [facility] (MEDICAID HMO) [id number] Luciana Rouse [id number] Luciana Nasim 10/13/2024 1 [facility] (MEDICAID HMO) [id number] Luciana Rouse [id number] Luciana Nasim 10/20/2024 1 [facility] (MEDICAID HMO) [id number] Luciana Rouse [id number] Luciana Nasim 10/27/2024 1 [facility] (MEDICAID HMO) [id number] Luciana Rouse [id number] Luciana Rouse 10/27/2024 1 [facility] (MEDICAID HMO) [id number] Luciana Rouse [id number] Luciana Rouse OBGyn Episode Ob Episode Information Episode Created Date Number of Fetuses Patient Bloodtype Patient rh Status Prepregnancy Weight lbs Domestic Partner Domestic Partner Phone Father Name Still Cleaner Tube Status 12/27/19 22 1 CLOSED Fetus Data First Name Last Name Admitted to NICU Weight (g) Sex Living Outcome Pediatric Complications Fetus ID Race Codes Race Delivery Type 3033.16 9704 F Prematur e [id number] Primary Aramis Calculation Initial Aramis Date Initial Exam Date Initial Exam Provider Initial Ultrasound Date Last Menstrual Period Date Ultra Sound Weeks Gestation 0 Eighteen To Twenty Week Aramis Update Ultra Sound Date Fundal Height At Umbil Quickening Date Ultra Sound Latest Weeks Gestation Final Aramis Confirmed By Final Aramis Confirmed Date Final Aramis Date Ultra Sound Latest Days Gestation 0 0 Menstrual History Last Menstrual Date Menses Monthly On Bcp Conception Prior Menses Frequency Hcg Plus Date Menarche Onset Age Delivery Information Delivery Date Delivery Type Labor Anesthesia Weeks Gestation Incision Type Labor Labor Length Hrs Delivered By Post Complications Tubal Sterilization Discharge Date Comments 0 35.6 true placenta previa, growth restritio n Discharge Information Feeding Method Contraceptive Method Maternal HG B and HCT Levels Ob Episode Information Episode Created Date Number of Fetuses Patient Bloodtype Patient rh Status Prepregnancy Weight lbs Domestic Partner Domestic Partner Phone Father Name Still Cleaner Tube Status 01/29/20 22 1 O Positive 206 CLOSED Fetus Data First Name Last Name Admitted to NICU Weight (g) Sex Living Outcome Pediatric Complications Fetus ID Race Codes Race Delivery Type 3543.68 75 F true Full Term [id number] Vaginal Delivery Problems Problem Notes both babies measured IUGR bu t then were AGA at birth07/19 PIH LABS WNL Problem Name Start Date End Date Resolution Snomed Code Not e Past history of section 734866269 for prev ia, wants TOLAC Past history of gestational hypertension 150331448 baseline PIH la bs, ASA Aramis Calculation Initial Aramis Date Initial Exam Date Initial Exam Provider Initial Ultrasound Date Last Menstrual Period Date Ultra Sound Weeks Gestation 07/10/2022 01/28/2022 12/26/2021 10/03/2021 12 Eighteen To Twenty Week Aramis Update Ultra Sound Date Fundal Height At Umbil Quickening Date Ultra Sound Latest Weeks Gestation Final Aramis Confirmed By Final Aramis Confirmed Date Final Aramis Date Ultra Sound Latest Days Gestation 0 [email or web address] 01/28/2022 07/10/20 22 0 Pre-darrin Flowsheet Flowsheet Date 01/28/2022 Castellano Score Blood Edema Fundus Height Fundus Units Glucose Ketones Leukocytes Nitrite Labor Signs Protein Cervic Dilation Cervic Effacement Cervic Station neg none none trace Type Weight in lbs Pre/Post Dialysis Refused Weight 207.259363596020 BP Diastolic BP Location Tested BP Systolic BP Type 72 106 Fetus Heart Rate Present A 155 Fetus Movement A No Comments Luciana is a 31yo w ho presents for care at 16w5d. She delivered her last two at [facility]. She had PIH with her first and a previa and CS with her second. She would like to TOLAC, we discussed in depth the risks of both repeat CS and of TOLAC. She is aware that these risks include risk of to her and baby. Will start ASA and do baseline PIH labs. COvid vaccines done, but has not done booster yet, she will do this soon. Anatomu US next. Flowsheet Date 02/25/2022 Castellano Score Blood Edema Fundus Height Fundus Units Glucose Ketones Leukocytes Nitrite Labor Signs Protein Cervic Dilation Cervic Effacement Cervic Station Type Weight in lbs Pre/Post Dialysis Refused BP Diastolic BP Location Tested BP Systolic BP Type Fetus Heart Rate Present Fetus Movement Comments Flowsheet Date 02/25/2022 Castellano Score Blood Edema Fundus Height Fundus Units Glucose Ketones Leukocytes Nitrite Labor Signs Protein Cervic Dilation Cervic Effacement Cervic Station neg none 20 none trace Type Weight in lbs Pre/Post Dialysis Refused Weight 211.559370048820 BP Diastolic BP Location Tested BP Systolic BP Type 73 114 Fetus Heart Rate Present A 160 Fetus Movement A Yes Comments Doing well, feels great. Us today anatomy complete and wnl except LVOT and LS spine not seen well. Has not started ASA or gotten booster yet, but will. Complete anatomy next visit. Flowsheet Date 03/27/2022 Castellano Score Blood Edema Fundus Height Fundus Units Glucose Ketones Leukocytes Nitrite Labor Signs Protein Cervic Dilation Cervic Effacement Cervic Station Type Weight in lbs Pre/Post Dialysis Refused BP Diastolic BP Location Tested BP Systolic BP Type Fetus Heart Rate Present Fetus Movement Comments Flowsheet Date 03/27/2022 Castellano Score Blood Edema Fundus Height Fundus Units Glucose Ketones Leukocytes Nitrite Labor Signs Protein Cervic Dilation Cervic Effacement Cervic Station neg none none trace Type Weight in lbs Pre/Post Dialysis Refused Weight 217.886917022528 BP Diastolic BP Location Tested BP Systolic BP Type 77 116 Fetus Heart Rate Present Fetus Movement A Yes Comments patient is having headaches. anatomy complete, efw 48%, plan gct in 4 weeks, started asa Flowsheet Date 04/19/2022 Castellano Score Blood Edema Fundus Height Fundus Units Glucose Ketones Leukocytes Nitrite Labor Signs Protein Cervic Dilation Cervic Effacement Cervic Station neg none 28 none trace Type Weight in lbs Pre/Post Dialysis Refused Weight 220.006602955133 BP Diastolic BP Location Tested BP Systolic BP Type 78 118 Fetus Heart Rate Present A 145 Fetus Movement A Yes Comments doing well, gct today, +FM, precautions reviewed, remind about tdap next visit, f/u 2 weeks Flowsheet Date 05/01/2022 Castellano Score Blood Edema Fundus Height Fundus Units Glucose Ketones Leukocytes Nitrite Labor Signs Protein Cervic Dilation Cervic Effacement Cervic Station neg trace 31 none trace Type Weight in lbs Pre/Post Dialysis Refused Weight 221.212515330293 BP Diastolic BP Location Tested BP Systolic BP Type 79 125 Fetus Heart Rate Present A 144 Fetus Movement A Yes Comments patient is having shortness of breathe and swelling. sob after night taking unisom, felt off the whole day, precautions reviewed and if sxs worsen to ED, check labs, increase hydration f/u 2 weeks Flowsheet Date 05/22/2022 Castellano Score Blood Edema Fundus Height Fundus Units Glucose Ketones Leukocytes Nitrite Labor Signs Protein Cervic Dilation Cervic Effacement Cervic Station neg none 33 none trace Type Weight in lbs Pre/Post Dialysis Refused Weight 223.310918961401 BP Diastolic BP Location Tested BP Systolic BP Type 76 119 Fetus Heart Rate Present A 152 Present Fetus Movement A Yes Comments patient is having some bh co ntractions. reviewed precautions, may get epidural disc possible IUPC, will consider, f/u 2 weeks then weekly Flowsheet Date 06/07/2022 Castellano Score Blood Edema Fundus Height Fundus Units Glucose Ketones Leukocytes Nitrite Labor Signs Protein Cervic Dilation Cervic Effacement Cervic Station neg none 35 none trace Type Weight in lbs Pre/Post Dialysis Refused Weight 224.487807847694 BP Diastolic BP Location Tested BP Systolic BP Type 84 127 Fetus Heart Rate Present A 148 Present Fetus Movement A Yes Comments doing well, GBS done, preadm ission scheduled, precautions reviewed f/u one week Flowsheet Date 06/17/2022 Castellano Score Blood Edema Fundus Height Fundus Units Glucose Ketones Leukocytes Nitrite Labor Signs Protein Cervic Dilation Cervic Effacement Cervic Station neg trace 36 none trace Type Weight in lbs Pre/Post Dialysis Refused Weight 227.037737266472 BP Diastolic BP Location Tested BP Systolic BP Type 74 115 Fetus Heart Rate Present A 150 Fetus Movement A Yes Comments Doing well, GBS neg. SOme ce rvical pressure. Good FM. Labor precautions. Flowsheet Date 06/25/2022 Castellano Score Blood Edema Fundus Height Fundus Units Glucose Ketones Leukocytes Nitrite Labor Signs Protein Cervic Dilation Cervic Effacement Cervic Station neg none 39 none trace Type Weight in lbs Pre/Post Dialysis Refused Weight 227.574807152328 BP Diastolic BP Location Tested BP Systolic BP Type 80 140 82 120 Fetus Heart Rate Present A 135 Fetus Movement A Yes Comments Doing well. Repeat BP wnl. S till planning . Will check cervix next week. ASk re flu shot next week. Flowsheet Date 06/27/2022 Castellano Score Blood Edema Fundus Height Fundus Units Glucose Ketones Leukocytes Nitrite Labor Signs Protein Cervic Dilation Cervic Effacement Cervic Station Type Weight in lbs Pre/Post Dialysis Refused BP Diastolic BP Location Tested BP Systolic BP Type Fetus Heart Rate Present Fetus Movement Comments Flowsheet Date 07/03/2022 Castellano Score Blood Edema Fundus Height Fundus Units Glucose Ketones Leukocytes Nitrite Labor Signs Protein Cervic Dilation Cervic Effacement Cervic Station neg none none trace Type Weight in lbs Pre/Post Dialysis Refused Weight 227.410685553026 BP Diastolic BP Location Tested BP Systolic BP Type 83 125 Fetus Heart Rate Present A 154 Fetus Movement A Yes Comments patient states that having c ramping, contractions and pressure. plan IOL at 40 weeks, membrane sweep on friday, precautions reviewed Flowsheet Date 07/05/2022 Castellano Score Blood Edema Fundus Height Fundus Units Glucose Ketones Leukocytes Nitrite Labor Signs Protein Cervic Dilation Cervic Effacement Cervic Station neg none none trace 2cm 50% Type Weight in lbs Pre/Post Dialysis Refused Weight 229.158238058219 BP Diastolic BP Location Tested BP Systolic BP Type 84 137 Fetus Heart Rate Present A 145 Fetus Movement A Yes Comments patient states that having s ome pain and contractions. membrane sweep IOL scheduled next week Flowsheet Date 08/07/2022 Castellano Score Blood Edema Fundus Height Fundus Units Glucose Ketones Leukocytes Nitrite Labor Signs Protein Cervic Dilation Cervic Effacement Cervic Station Type Weight in lbs Pre/Post Dialysis Refused Weight 208.756605943709 BP Diastolic BP Location Tested BP Systolic BP Type 75 140 Fetus Heart Rate Present Fetus Movement Comments Menstrual History Last Menstrual Date Menses Monthly On Bcp Conception Prior Menses Frequency Hcg Plus Date Menarche Onset Age 0210/03/2021 Genetic Screening And Infection History Question Response Note Mental Retardation/Autism false Patient's Age Will Be 35 Years Or Older At Estim ated Date of Delivery false Thalassemia (Kosovan, Cook Islander, Mediterranean, Or Background): MCV < 80 false Neural Tube Defect (Meningomyelocele, Spina Bifi da, Or Anencephaly) false Congenital Heart Defect false Down Syndrome false David-Sachs (eg, Tenriism, Cajun, Divehi-Merkel) f alse Fransico Disease false Sickle Cell Disease Or Trait () false Hemophilia Or Other Blood Disorders false Muscular Dystrophy false Cystic Fibrosis false [place] Chorea false Intellectual Disability/Autism false If Yes, Was Person Tested For Fragile X? false Other Inherited Genetic Or Chromosomal Disorder false Maternal Metabolic Disorder (eg, Type 1 Diabetes , PKU) false Patient Or Baby's Father Had A Child With Defects Not Listed Above false Recurrent Loss, Or A Stillbirth false Medications (including Suppl ements, Vitamins, Herbs, OTC Drugs), Illicit/Recreational Drugs, Alcohol false If Yes, Agent(s) And Strength/Dosage false Any Other Genetic History false Live With Someone With TB Or Exposed To TB false Patient Or Partner Has History Of Genital Herpes false Rash Or Viral Illness Since Last Menstrual Perio d false History Of STD, Gonorrhea, Chlamydia, HPV, Syphi lis false Other Infection History false History of HIV false History of Hepatitis false Prior GBS-infected child false Hemoglobinopathy Or Carrier false Other Structural Defect false Recent Travel History Outside of Country false Delivery Information Delivery Date Delivery Type Labor Anesthesia Weeks Gestation Incision Type Labor Labor Length Hrs Delivered By Post Complications Tubal Sterilization Discharge Date Comments 2 Induce d 39.6 false Huong Denise CNDiana Discharge Information Feeding Method Contraceptive Method Maternal HG B and HCT Levels Ob Episode Information Episode Created Date Number of Fetuses Patient Bloodtype Patient rh Status Prepregnancy Weight lbs Domestic Partner Domestic Partner Phone Father Name Still Cleaner Tube Status 12/27/19 22 1 CLOSED Fetus Data First Name Last Name Admitted to NICU Weight (g) Sex Living Outcome Pediatric Complications Fetus ID Race Codes Race Delivery Type 3373.36 3704 M Full Term 62606 Vaginal Delivery Aramis Calculation Initial Aramis Date Initial Exam Date Initial Exam Provider Initial Ultrasound Date Last Menstrual Period Date Ultra Sound Weeks Gestation 0 Eighteen To Twenty Week Aramis Update Ultra Sound Date Fundal Height At Umbil Quickening Date Ultra Sound Latest Weeks Gestation Final Aramis Confirmed By Final Aramis Confirmed Date Final Aramis Date Ultra Sound Latest Days Gestation 0 0 Menstrual History Last Menstrual Date Menses Monthly On Bcp Conception Prior Menses Frequency Hcg Plus Date Menarche Onset Age Delivery Information Delivery Date Delivery Type Labor Anesthesia Weeks Gestation Incision Type Labor Labor Length Hrs Delivered By Post Complications Tubal Sterilization Discharge Date Comments 8 39 GHTN, growth restricti on Discharge Information Feeding Method Contraceptive Method Maternal HG B and HCT Levels Ob Episode Information Episode Created Date Number of Fetuses Patient Bloodtype Patient rh Status Prepregnancy Weight lbs Domestic Partner Domestic Partner Phone Father Name Still Cleaner Tube Status 03/19/20 24 1 CLOSED Fetus Data First Name Last Name Admitted to NICU Weight (g) Sex Living Outcome Pediatric Complications Fetus ID Race Codes Race Delivery Type , [place] ous [id number] Aramis Calculation Initial Aramis Date Initial Exam Date Initial Exam Provider Initial Ultrasound Date Last Menstrual Period Date Ultra Sound Weeks Gestation 0 Eighteen To Twenty Week Aramis Update Ultra Sound Date Fundal Height At Umbil Quickening Date Ultra Sound Latest Weeks Gestation Final Aramis Confirmed By Final Aramis Confirmed Date Final Aramis Date Ultra Sound Latest Days Gestation 0 0 Menstrual History Last Menstrual Date Menses Monthly On Bcp Conception Prior Menses Frequency Hcg Plus Date Menarche Onset Age Delivery Information Delivery Date Delivery Type Labor Anesthesia Weeks Gestation Incision Type Labor Labor Length Hrs Delivered By Post Complications Tubal Sterilization Discharge Date Comments 4 Discharge Information Feeding Method Contraceptive Method Maternal HG B and HCT Levels Ob Episode Information Episode Created Date Number of Fetuses Patient Bloodtype Patient rh Status Prepregnancy Weight lbs Domestic Partner Domestic Partner Phone Father Name Still Cleaner Tube Status 05/05/20 24 1 O Positive 213 OPEN Fetus Data First Name Last Name Admitted to NICU Weight (g) Sex Living Outcome Pediatric Complications Fetus ID Race Codes Race Delivery Type [id number] Problems Problem Notes Problem Name Start Date End Date Resolution Snomed Code Not e Past history of gestational hypertension [id number] basa daily Migraine 05/05/2024 58567324 Past history of section 868552624 for prev ia, has had one since, 2 total vaginal deliveries Placenta circumvallata 0606011 32wk growth us Anemia 583445756 HGB 10.8 L ow ferritin - Iron infusion order faxed 09/29scheduledt to start infusion on 10/13 and repeat weekly x4wk Aramis Calculation Initial Raamis Date Initial Exam Date Initial Exam Provider Initial Ultrasound Date Last Menstrual Period Date Ultra Sound Weeks Gestation 11/07/2024 04/20/2024 03/19/2024 12/28/2023 6 Eighteen To Twenty Week Aramis Update Ultra Sound Date Fundal Height At Umbil Quickening Date Ultra Sound Latest Weeks Gestation Final Aramis Confirmed By Final Aramis Confirmed Date Final Aramis Date Ultra Sound Latest Days Gestation 0 0 Pre-darrin Flowsheet Flowsheet Date 05/05/2024 Castellano Score Blood Edema Fundus Height Fundus Units Glucose Ketones Leukocytes Nitrite Labor Signs Protein Cervic Dilation Cervic Effacement Cervic Station neg none none trace Type Weight in lbs Pre/Post Dialysis Refused Weight 217.859848675220 BP Diastolic BP Location Tested BP Systolic [...] Type Weight in lbs Pre/Post Dialysis Refused 220.918434873238 BP Diastolic BP Location Tested BP Systolic [...] Type Weight in lbs Pre/Post Dialysis Refused 221.462145631295 BP Diastolic BP Location Tested BP Systolic [...] Type Weight in lbs Pre/Post Dialysis Refused 229.224134554705 BP Diastolic BP Location Tested BP Systolic [...] Type Weight in lbs Pre/Post Dialysis Refused 232.91035148282 BP Diastolic BP Location Tested BP Systolic [...] Type Weight in lbs Pre/Post Dialysis Refused 233.251464088886 BP Diastolic BP Location Tested BP Systolic BP Type 72 134 Fetus Heart Rate Present Fetus Movement A Yes Comments Patient is having BH Contrac tions and nausea. precautions and education +FM, will meet dr. cuevas next appt. rsv vaccine rx given ok [...] Weight in lbs Pre/Post Dialysis Refused Weight 233.795487981663 BP Diastolic BP Location Tested BP Systolic BP Type 86 L arm 128 sitting Fetus Heart Rate Present A Present Fetus Movement A Yes Comments Patient c/o slight nausea, B raxton arias. Good movement. Had migraine last week and was worried about elevated BPs, was seen at [place] and workup was negative. Anemic, will recheck levels today. EFW 18%, SONIA wnl. Discussed GBS for next visit. RTC 2 weeks. Flowsheet Date 10/13/2024 Castellano Score Blood Edema Fundus Height Fundus Units Glucose Ketones Leukocytes Nitrite Labor Signs Protein Cervic Dilation Cervic Effacement Cervic Station neg none 37 cm Type Weight in lbs Pre/Post Dialysis Refused Weight 236.239271494167 BP Diastolic BP Location Tested BP Systolic [...] Weight in lbs Pre/Post Dialysis Refused Weight 236.406940921086 BP Diastolic BP Location Tested BP Systolic [...] Type Weight in lbs Pre/Post Dialysis Refused 236.532489481308 BP Diastolic BP Location Tested BP Systolic [...]
--- OUTSIDE RECORDS SUMMARY | 2024-10-27 13:39 | XMS_ITS | Clinical Summary ---
Author Organization [facility] Address [address] [place] [phone] Phone Care Team Providers Care Associate Professor Of Musicology Name Role Phone Provider, None Primary Care Provider Unavailabl e Allergies No known active allergies Medications ondansetron (Zofran ODT) 4 MG TABLET DISPERSIBLE Take 1 Tablet by mouth every 8 hours as needed for Nausea - 1st line. 10 Tablet 1 Active HYDROcodone-acet aminophen (NORCO) 5-325 MG TabletIndication s:Right ureteral stone Take 1 Tablet by mouth every 6 hours as needed for Moderate or more severe pain. 12 Tablet 1 Active Active Problems No known active problems Social History Tobacco Use Types Packs/Day Years Used Date Smoking Tobacco: Never Smokeless Tobacco: Current Comments Unknown Sex and Gender Information Value Date Recorded Sex Assigned at Not on file Legal Sex Female 9:59 AM SEAMER Gender Identity Not on file Sexual Orientation Not on file Last Filed Vital Signs Vital Sign Reading Time Taken Comments Blood Pressure 131/87 07/29/2021 5:14 PM SEAMER Pulse 92 07/29/2021 5:14 PM SEAMER Temperature 37.1 C (98.8 F) 07/29/2021 2:38 PM SEAMER Respiratory Rate 16 07/29/2021 5:14 PM SEAMER Oxygen Saturation 99% 07/29/2021 5:14 PM SEAMER Inhaled Oxygen Concentration - - Weight 90.7 kg (200 lb) 07/29/2021 2:37 PM SEAMER Height 170.2 cm (5' 7 ) 07/29/2021 2:37 PM SEAMER Body Mass Index 31.32 07/29/2021 2:37 PM SEAMER Plan of Treatment Health Maintenance Due Date Last Done Comments Hepatitis C Virus (HCV) Screening 1992 TdaP Immunization 1992 Hepatitis B Immunization (1 of 3 - 19+ 3-dose series) 2011 Pap Smear 2013 Cervical Cancer Screening (CCS) 2022 HPV/Cotest 2022 Influenza Immunization (#1) 2024 SARS-COV-2 Immunization ( season) 2024 05/12/2021, 04/10/2021 Respiratory Syncytial Virus (RSV) Immunization (Adult) (1 - 1-dose 75+ series) 2067 Meningococcal Immunization (ACWY) Aged Out No longer eligible b ased on patient's age to complete this topic Pneumococcal Immunization Combined Aged Out No longer eligible b ased on patient's age to complete this topic Rotavirus Immunization Aged Out No lo nger eligible based on patient's age to complete this topic Insurance MEDICAID BL[place] Care Teams Associate Professor Of Musicology Relationship Specialty Start Date End Date Provider, None [place] PCP - General 08/25/20
--- NOTE | 2024-10-27 14:31 | PM.IMHP ---
H&P: HPI History of Present Illness Date/Time: 10/27/24 14:31 Chief Complaint: , , pt here for IOL due to fawn 5 cm, efw ac 7%, 38.3 weeks gestation, hx TOLAC and 2 successful vaginal deliveries. was for placenta previa. hx migraines and anemia PMFSH Past Medical History Medical History Vaginal delivery X1 delivery delivered X1 Surgical History Surgical History H/O section Family History Family History Father Hematuria Mother Alive and well Grandparent Cerebrovascular accident Social History Social History Smoking status: Never smoker Second hand tobacco smoke exposure: No Alcohol intake: current Substance use: never Do You Feel Safe in your Home?: Yes Lack of Transportation: No Lack of Food: Never True Current Housing: I Have Housing Concerned About Future Housing: No Difficulty Paying Gas/Electric Bills: No Difficulty Paying for Meds: No Currently Unemployed: No Education: Bachelor's Degree Difficulty w/ Childcare or Family Care: No Living arrangements: with family Occupation/Education: unemployed Gender identity (if verbalized by the patient): Female Sexual Orientation (if Verbalized by the Patient): Straight or Heterosexual Spiritual care concerns: No Meds Home Medications and Allergies Home Medications ?Medication ?Instructions ?Recorded ?Confirmed ?Type vit no.95-ferrous 1 tablet PO DAILY 10/12/24 10/27/24 History fumarate 28 mg-folic acid 800 mcg tablet () sumatriptan succinate 25 mg tablet 25 mg PO Q2H PRN migraine headache 10/13/24 10/27/24 History Allergies Allergy/AdvReac Type Severity Reaction Status Date / Time No Known Allergies Allergy Verified 10/27/24 13:28 Vital Signs Vital Signs - 24 hr 10/27/24 12:47 10/27/24 13:15 10/27/24 13:17 Temperature 36.8 C Pulse Rate 100 93 Respiratory Rate 16 Blood Pressure 130/83 118/70 Oxygen Delivery Room Air 10/27/24 13:30 10/27/24 14:00 10/27/24 14:30 Temperature 37.2 C Pulse Rate 97 101 H 91 Respiratory Rate 18 Blood Pressure 111/71 103/66 118/70 Oxygen Delivery Exam Const: General: cooperative and healthy appearing Neck: Neck: normal visual inspection Chest: Chest palpation & inspection: normal inspection of the chest Cardio: Rate: regular rate GI: Other: soft, gravid : Other: SVE 3/50/-2 AROM small clear fluid Neuro: General: patient oriented x3 Extrem: General: normal to inspection H&P: Results Labs Labs: Short CBC 10/27/24 Range/Units 12:35 WBC 6.4 (4.5-10.0) K/mm3 Hgb 11.1 L (12.0-15.0) g/dL Hct 33.4 L (37.0-47.0) % Plt Count 249 (150-375) k/mm3 Assessment and Plan Assessment and plan (1) Oligohydramnios: Code(s): O41.00X0 - Oligohydramnios, unspecified trimester, not applicable or unspecified Status: Acute Plan labor induction, AROM with IUdr. Refugio FAJARDO co-managing
--- NOTE | 2024-10-27 15:34 | WPDANESEPP ---
Anes - Eval Pre Procedure Procedure: Labor epidural Date/Time: 10/27/24 15:34 Surgeon: Refugio Preop Diagnosis: Pain during labor Pre Op Diagnosis: IOL Patient Data Age: 34 Gender: F Height: 1.68 m Weight: 107.2 kg Last Vital Signs Temp 37.2 C 10/27/24 14:30 Pulse 91 10/27/24 15:31 Resp 18 10/27/24 14:30 BP 132/69 10/27/24 15:31 O2 Del Method Room Air 10/27/24 13:15 Allergies Allergy/AdvReac Type Severity Reaction Status Date / Time No Known Allergies Allergy Verified 10/27/24 13:28 Home Medications ?Medication ?Instructions ?Recorded ?Confirmed ?Type vit no.95-ferrous 1 tablet PO DAILY 10/12/24 10/27/24 History fumarate 28 mg-folic acid 800 mcg tablet () sumatriptan succinate 25 mg tablet 25 mg PO Q2H PRN migraine headache 10/13/24 10/27/24 History Laboratory Tests 10/27/24 12:35 WBC 6.4 K/mm3 (4.5-10.0) RBC 3.94 L M/mm3 (4.2-5.4) Hgb 11.1 L g/dL (12.0-15.0) Hct 33.4 L % (37.0-47.0) MCV 84.8 fl (80-100) MCH 28.2 pg (26-34) MCHC 33.2 g/dl (32-36) RDW 15.3 H % (11.5-14.5) Plt Count 249 k/mm3 (150-375) MPV 11.3 H fl (7.4-10.4) Immature Gran % (Auto) 0.3 % (0-0.5) Neut % (Auto) 80.4 H % (45.5-73.1) Lymph % (Auto) 12.9 L % (18.3-44.2) [place] % (Auto) 5.8 % (2.6-8.5) Eos % (Auto) 0.3 % (0-4.4) Baso % (Auto) 0.3 % (0.2-1.2) Lymph # (Auto) 0.82 L K/mm3 (0.9-3.2) [place] # (Auto) 0.4 K/mm3 (0.1-0.6) Eos # (Auto) 0.0 K/mm3 (0-0.3) Baso # (Auto) 0.0 K/mm3 (0.0-0.1) Abs Immat Gran (auto) 0.02 K/mm3 (0.00-0.031) Absolute Neuts (auto) 5.1 K/mm3 (1.3-6.7) Absolute Nucleated RBC 0.000 K/mm3 (0.0-0.012) Nucleated RBC % 0.0 % (0.0-0.2) Syphilis IgG/IgM Ab Negative (Negative) HIV 1&2 Ab/P24 Ag 4thGn Negative (Negative) Blood Type O Positive Antibody Screen Negative Patient hx anesthesia problems: none Family hx anesthesia problems: none Results Review: All pre-operative results and documents have been reviewed as part of the pre-operative evaluation. PMFSH Past Medical History Medical History Vaginal delivery X1 delivery delivered X1 Surgical History Surgical History H/O section Family History Family History Father Hematuria Mother Alive and well Grandparent Cerebrovascular accident Social History Social History Smoking status: Never smoker Second hand tobacco smoke exposure: No Alcohol intake: current Substance use: never Do You Feel Safe in your Home?: Yes Lack of Transportation: No Lack of Food: Never True Current Housing: I Have Housing Concerned About Future Housing: No Difficulty Paying Gas/Electric Bills: No Difficulty Paying for Meds: No Currently Unemployed: No Education: Bachelor's Degree Difficulty w/ Childcare or Family Care: No Living arrangements: with family Occupation/Education: unemployed Gender identity (if verbalized by the patient): Female Sexual Orientation (if Verbalized by the Patient): Straight or Heterosexual Spiritual care concerns: No Exam Day of Procedure 10/27/24 15:34 Patient weight: overweight Heart: regular rate and rhythm Lungs: clear to auscultation Airway: Mallampati scale Neurological: alert and oriented
[2024-10-27] MEDS: ACETAMINOPHEN 500 MG TABLET 1000 MG PO (17:13)
--- NOTE | 2024-10-27 18:38 | PM.OBPRVD ---
OB - Vaginal Delivery Note Procedure Delivery date: 10/27/24 Events: Oligohydramnios, Previous Delivery and Other (sga) Induction method: AROM and Per Pitocin Protocol Delivery monitor: External FHT and Internal Uterine Route of delivery: Episiotomy description: None Laceration Description: Perineal - 1st Degree Delivery repair: vicryl Specimen: No Quantitative Blood Loss (ml): 65 Anesthesia type: Epidural Disposition: Floor Complications: No immediate complications Baby Date of : 10/27/24 Time of : 18:26 Gestational Age by Date: 38 Infant gender: Female presentation: vertex position: Right Occiput Anterior Placenta delivery description: Spontaneous Cord Vessel Description: 3 Vessels, Nuchal Cord (x1), Loose and Delayed Cord Clamping score one minute: 9 score five minutes: 9
[2024-10-27] MEDS: OXYTOCIN 30 UNITS/NS 500 ML 30 UNITS/500 ML BAG 125 UNITS IV CONT (19:00)
[2024-10-27] MEDS: WITCH HAZEL 40 PADS 1 PAD TOPICAL (20:36)
[2024-10-27] MEDS: BENZOCAINE 20% AER SPR (*SP) 56 GM CAN 1 SPRAY TOPICAL (20:37)
--- NOTE | 2024-10-27 21:00 | OBPPTRN ---
Patient transferred to post room #290 via wheelchair. Support person present. Oriented to unit, room, information board, rooming in, admission packet and security measures. Patient verbalizes understanding.
[2024-10-27] MEDS: IBUPROFEN 600 MG TABLET PO (21:59)
[2024-10-28 04:51] LABS: Hematocrit 30.9 % (37.0-47.0)
[2024-10-28 05:00] VITALS: BP 106/71; PULSE 78; RESP 16; TEMP 36.4; O2SAT 97
[2024-10-28] MEDS: IBUPROFEN 600 MG TABLET PO ×2 (07:42→19:12)
[2024-10-28] MEDS: ACETAMINOPHEN 325 MG TABLET 650 MG PO ×2 (07:43→19:11)
[2024-10-28] MEDS: MULTIVIT/MIN/PREN/FOL AC/IRON TABLET 1 TAB PO (07:44)
[2024-10-28 07:45] VITALS: BP 114/72; PULSE 87; RESP 16; TEMP 36.4; O2SAT 98
--- NOTE | 2024-10-28 08:17 | PM.OBPNVD ---
OB - PN: Subj Subjective Date/time seen: 10/28/24 08:17 Patient comments: no complaints, pain well controlled, incisional pain, tolerating diet and flatus present OB - PN: Obj Data Labs 10/28/24 04:38 Labs: Laboratory Results - last 24 hr 10/27/24 10/28/24 12:35 04:38 WBC 6.4 RBC 3.94 L Hgb 11.1 L 10.0 L Hct 33.4 L 30.9 L MCV 84.8 MCH 28.2 MCHC 33.2 RDW 15.3 H Plt Count 249 MPV 11.3 H Immature Gran % (Auto) 0.3 Neut % (Auto) 80.4 H Lymph % (Auto) 12.9 L Powell % (Auto) 5.8 Eos % (Auto) 0.3 Baso % (Auto) 0.3 Lymph # (Auto) 0.82 L Powell # (Auto) 0.4 Eos # (Auto) 0.0 Baso # (Auto) 0.0 Abs Immat Gran (auto) 0.02 Absolute Neuts (auto) 5.1 Absolute Nucleated RBC 0.000 Nucleated RBC % 0.0 Syphilis IgG/IgM Ab Negative HIV 1&2 Ab/P24 Ag 4thGn Negative Blood Type O Positive Antibody Screen Negative OB - PN A/P Plan day: 1 Plan: routine care Comments: No problems, routine care Time Spent With Patient Time: Total time spent is greater than 50% in coordination of care (as documented) at patient's floor/unit and/or counseling patient: Exam Const: General: comfortable, no acute distress and alert Resp: Effort & Inspection: normal respiratory effort Auscultation: no crackles, no rales and no rhonchi Cardio: Rate: regular rate Heart sounds: no click, no murmurs and no rubs GI: Inspection: non-distended GI Palp: No Tenderness to palpation present (GI) Auscultation: normal bowel sounds Other: Incision - CDI Extrem: General: normal to inspection, no pedal edema and no calf tenderness
--- NOTE | 2024-10-28 12:31 | PC.NURSE ---
[phone] Introductions were made, then consulted with patient to assess needs related to . Mother led the conversation with her?plans to feed?her infant and the?experience so far. Mother plans on exclusively , she has breastfed 2 of her children and one child she only pumped and bottle fed because they would not latch. Per mother she used a nipple shield for only a few mins during the night but it really didn't work well for her. RN encouraged understanding of the benefits of skin to skin (demonstrating unwrapping and placing upright on her chest), stimulating with massage touch, changing positions to encourage wakefulness, how to watch for early feeding cues, responsive feeding, feeding on demand (aiming for 8-12 times in 24 hours, about every 2-3 hours), milk production, building/maintaining a milk supply, duration of feeding, signs of adequate intake/output and how to record on the feeding sheet. Mother works well with her with encouragement and education. Reviewed positioning and ear, shoulder, hip alignment, supporting the breast to facilitate a deep latch, asymmetrical latch (off-center), leading with the chin with a big, open, wide gape and body close to mother. Mother to put baby skin to skin and watch for feeding cues. Mother voiced understanding of information, demonstrated learning and will call if there is a request for assistance. Reported to the Primary RN. [phone] Mother called out for assistance, she was able to latch baby to the [left] breast in [cross cradle] position for only 3 mins, baby had to be stimulated to suck, she attempted for 15 mins. Mother then switched to her right breast in cross cradle and football, baby was just not interested, did not show any feeding cues, mother was able to hand express and feed baby 10 large drops of colostrum. Mother to put baby skin to skin and watch for feeding cues, call out for help if needed. Education given to the mother of how to visualize the suckling (with good rocking jaw motion), swallows (dropping of the lower jaw) and how to listen for drinking at the breast (the ka sound) when baby is able to latch. Reviewed comfort measures of healing with a warm, wet washcloth to rinse breast, then leave open to air-dry, good handwashing when or touching the breast/nipples to prevent infection. Mother voiced understanding of skin to skin, stimulating with massage touch, responsive feedings, hand expressed colostrum, talking to infant to encourage if it has been 2 -2.5 hours since the start of the last , to call if does not latch, or if there is discomfort with . Resources used for education were facilitated with the [visual educational handouts/ tool/mom and baby guide], Inpatient/outpatient resources provided with business card, feeding sheet, name written on the communication board, and the mom/baby guide. Parents voiced understanding of information, demonstrated learning and will call if there is a request for assistance. Reported to the Primary RN.
[2024-10-28 12:49] VITALS: BP 123/77; PULSE 85; RESP 18; TEMP 36.6; O2SAT 99
--- NOTE | 2024-10-28 14:26 | WPDANLDPN2 ---
Anes-Prog Note L&D Date/Time: 10/28/24 14:26 Comfortable throughout: labor and delivery Neuraxial method: epidural Epidural/Spinal procedure site: clean & non-tender Neuro status: Neuro function grossly intact. Cardiovascular status: normal Respiratory status: normal Airway patency: baseline Mental status: baseline Post-Op hydration status: normal Vital Signs: Last Vital Signs Temp 36.6 C 10/28/24 12:49 Pulse 85 10/28/24 12:49 Resp 18 10/28/24 12:49 BP 123/77 10/28/24 12:49 Pulse Ox 99 10/28/24 12:49 O2 Del Method Room Air 10/27/24 21:20 Pain score (VAS): 0/10 I/O: Intake & Output 10/27/24 10/28/24 10/28/24 23:59 07:59 15:59 Output Total 195 Balance -195 Post-procedural complaints: none Patient feedback: Patient satisfied with anesthetic care.
[2024-10-29 00:25] VITALS: BP 111/66; PULSE 90; RESP 18; TEMP 36.1; O2SAT 98
[2024-10-29] MEDS: IBUPROFEN 600 MG TABLET PO (05:20)
[2024-10-29] MEDS: ACETAMINOPHEN 325 MG TABLET 650 MG PO (05:20)
--- NOTE | 2024-10-29 05:45 | PC.NURSE ---
Discussed feeding plans with due to infants rising bilirubin level and pt expressed wanting to continue exclusively and that she thinks her milk is coming in. Pt stated she has been latching to breast as well as hand expressing drops to . Encouraged Pt to insure infant is actively feeding and maintaining a latch for at least 10-15 minutes and if is still unable to maintain latch to please call for assistance with feeding. Pt verbalized understanding.
--- NOTE | 2024-10-29 07:39 | P.PNOB_ITS ---
OB - PN: Subj Subjective Date/time seen: 10/29/24 07:39 Interval history: pp day 2 doing well plan to d/c home OB - PN: Obj Data Labs 10/28/24 04:38 OB - PN A/P Plan day: 2 Plan: routine care and discharge home Time Spent With Patient Time: Total time spent is greater than 50% in coordination of care (as documented) at patient's floor/unit and/or counseling patient: Review of Systems 2 Review of Systems: All systems reviewed & are unremarkable except as noted in HPI and below Exam 2 Const: General: cooperative Chest: Chest palpation & inspection: normal inspection of the chest Resp: Effort & Inspection: normal respiratory effort
--- NOTE | 2024-10-29 07:40 | P.DS_ITS ---
DS: Admitting Diagnosis Discharge Date 10/30/23 Admitting Diagnosis IOL OB - DS: Summary OB Procedures : None OB Procedures Intrapartum: Spontaneous Vag Delivery OB Procedures: : None Peripartum Data Laceration Description: Perineal - 1st Degree Episiotomy description: None Time Spent with Patient Time attestation: Total time spent providing and/or coordinating discharge services: Discharge Plan Discharge Attending physician on discharge: Rashid Huff Discharging Clinician: Huong Denise Patient Disposition: Home, Self-Care Activity: pelvic rest Diet: regular Patient Instructions: Antibiotic Form Patient Language: Montenegrin Stand Alone Forms: General Discharge Information Follow-up/Referrals: Huong Denise, CNM [Certified Nurse Filling Machine Set Up Mechanic] - Discharge Medications: Continued sumatriptan succinate 25 mg tablet 25 mg PO Q2H PRN (Reason: migraine headache) PNV cmb#95-ferrous fumarate-FA [] 28 mg iron- 800 mcg tablet 1 tablet PO DAILY Patient Comments: ....... Date of admission: 10/27/24 12:04 Primary Care Provider: UNKNOWN,DOCTOR Admitting Provider: Rashid Huff Attending physician on admission: Rashid Huff Condition: Stable
[2024-10-29] MEDS: DOCUSATE SODIUM 100 MG CAPSULE PO (07:49)
[2024-10-29 07:50] VITALS: BP 126/80; PULSE 89; RESP 16; TEMP 36.6; O2SAT 98
--- NOTE | 2024-10-29 09:45 | PC.NURSE ---
Consulted with mother concerning needs and she shared her ability to independently latch infant optimally without pain. Mother is feeding appropriately for growth of and understands stimulating to eat if needed. Infant has had appropriate feedings in the last 24 hours meets the outcomes for weight, output, blood sugar and jaundice at this time. Reinforced understanding of milk production, transition of milk, signs of adequate intake, transition of stool, prevention/relief of engorgement, plugged ducts, mastitis, responsive watching for feeding cues, community resources, and when to call a provider using the resource of the feeding sheet along with the mom and baby guide. Mother voiced understanding of the information shared, is confident to continue effectively her at home, when to call for assistance, denies any additional assistance or education at this time. Reported to the Primary RN.
== END 2024-10-29 11:58 | disposition home or self-care (01) | DRG 560 ==
LOC: ANHLDR 12:06 → ANHOB2 22:05
PROVIDERS: Admitting Provider Obstetrics & Gynecology; Referring Provider Advanced Practice Midwife; Visit Provider Obstetrics & Gynecology
DX: O34.219 Maternal care for unspecified type scar from previous cesarean delivery (principal); O41.03X0 Oligohydramnios, third trimester, not applicable or unspecified; O99.02 Anemia complicating childbirth; D64.9 Anemia, unspecified; O69.81X0 Labor and delivery complicated by cord around neck, without compression, not applicable or unspecified; O70.0 First degree perineal laceration during delivery; O36.5930 Maternal care for other known or suspected poor fetal growth, third trimester, not applicable or unspecified; Z3A.38 38 weeks gestation of pregnancy; Z37.0 Single live birth
CPT/HCPCS: 36415; 85014; 85018; 85025; 86593; 86703; 86850; 86900; 86901; A9270; G0432; J2590; J2795; J7120